=== PATIENT | female | born 1965 | race Caucasian/White ===

== ENCOUNTER 2018-08-06 18:10 | Emergency (ER) | payer SELFPAY ==
[~2018-08-06] VITALS: Ht 157.5 cm; Wt 95.3 kg
[2018-08-06 18:34] VITALS: BP 179/88
[2018-08-06] MEDS ORDERED: PROAIR HFA8.5 GM INH (18:35)
[2018-08-06] MEDS ORDERED: PRED20TA PO (18:35)
[2018-08-06] MEDS ORDERED: AZIT250T PO (18:35)
--- NOTE | 2018-08-06 18:35 | PHYS DOC ---
Adult General Chief Complaint Chief Complaint: Congestion HPI HPI Patient is a 52 year old [f__sex] who presents with [] Review of Systems Review of Systems Constitutional: Denies fever or chills [] Eyes: Denies change in visual acuity, redness, or eye pain [] HENT: Denies nasal congestion or sore throat [] Respiratory: Denies cough or shortness of breath [] Cardiovascular: No additional information not addressed in HPI [] GI: Denies abdominal pain, nausea, vomiting, bloody stools or diarrhea [] : Denies dysuria or hematuria [] Musculoskeletal: Denies back pain or joint pain [] Integument: Denies rash or skin lesions [] Neurologic: Denies headache, focal weakness or sensory changes [] Endocrine: Denies polyuria or polydipsia [] All other systems were reviewed and found to be within normal limits, except as documented in this note. Current Medications Current Medications Current Medications Medications (Trade) Dose Ordered Sig/Matheus Start Time Stop Time Status Last Admin Dose Admin Dexamethasone (Decadron) 10 mg 1X ONCE 08/06/18 18:45 08/06/18 18:46 UNV Physical Exam Physical Exam Constitutional: Well developed, well nourished, no acute distress, non-toxic appearance. [] HENT: Normocephalic, atraumatic, bilateral external ears normal, oropharynx moist, no oral exudates, nose normal. [] Eyes: PERRLA, EOMI, conjunctiva normal, no discharge. [] Neck: Normal range of motion, no tenderness, supple, no stridor. [] Cardiovascular:Heart rate regular rhythm, no murmur [] Lungs & Thorax: Bilateral breath sounds clear to auscultation [] Abdomen: Bowel sounds normal, soft, no tenderness, no masses, no pulsatile masses. [] Skin: Warm, dry, no erythema, no rash. [] Back: No tenderness, no CVA tenderness. [] Extremities: No tenderness, no cyanosis, no clubbing, ROM intact, no edema. [] Neurologic: Alert and oriented X 3, normal motor function, normal sensory function, no focal deficits noted. [] Psychologic: Affect normal, judgement normal, mood normal. [] EKG EKG [] Radiology/Procedures Radiology/Procedures [] Course & Med Decision Making Course & Med Decision Making Pertinent Labs and Imaging studies reviewed. (See chart for details) [] Dragon Disclaimer Dragon Disclaimer This electronic medical record was generated, in whole or in part, using a voice recognition dictation system. Departure Departure Impression: Primary Impression: Acute bronchitis Disposition: 01 HOME, SELF-CARE Condition: STABLE Referrals: NO PCP (PCP) Patient Instructions: Acute Bronchitis, [id number] Additional Instructions: Hold antibiotics for 48 hours. If symptoms worsen or for fever > 100.3 F after 48 hours then start antibiotics as prescribed. Scripts Azithromycin (ZITHROMAX) 250 Mg Tablet 1 PKG PO UD for bronchitis, #6 TAB Take 2 tablets on day 1 and then 1 tablet each day for the next 4 days as directed Prov: SOURAV SANTIAGO DO 08/06/18 Albuterol Sulfate (PROAIR HFA INHALER) 8.5 Gm Hfa.aer.ad 1 PUFF INH PRN Q6HRS PRN for SHORTNESS OF BREATH, #1 INHALER 0 Refills Prov: SOURAV SANTIAGO DO 08/06/18 Prednisone (PREDNISONE) 20 Mg Tablet 2 TAB PO DAILY, #10 TAB Start this prescription 08/07/18 Prov: SOURAV SANTIAGO DO 08/06/18 Problem Qualifiers Primary Impression: Acute bronchitis Bronchitis organism: unspecified organism Qualified Codes: J20.9 - Acute bronchitis, unspecified SOURAV SANTIAGO DO Aug 06, 2018 18:35
[2018-08-06] MEDS ORDERED: DEXAMETHASONE 4 MG TABLET ONE (18:38)
[2018-08-06] MEDS ORDERED: DEXAMETHASONE 4 MG TABLET PO ONE (18:45)
== END 2018-08-06 18:52 | disposition home or self-care (01) ==
LOC: ER 18:10
DX: J20.9 Acute bronchitis, unspecified (principal)
CPT/HCPCS: 99283; J8540

== ENCOUNTER 2018-10-08 09:33 | Emergency (ER) | payer SELFPAY ==
[~2018-10-08] VITALS: Ht 157.5 cm; Wt 108.9 kg
[~2018-10-08 09:33] MED LIST: ALBU2.5V8 INH; AZIT250T PO; CHOL500016 PO; GABA300C18 PO; GLIP10TA13 PO; INSU100I17 SQ; INSU100V13 SQ; LISI-334 PO; METF10007 PO; OXYC5CAP PO; PRED20TA PO
[2018-10-08 09:42] VITALS: BP 193/108
[2018-10-08] MEDS ORDERED: IV NORMAL SALINE 1000ML BAG 1,000 ML IV SCH (10:04)
--- NOTE | 2018-10-08 10:11 | PHYS DOC ---
Past Medical History Past Medical History: Diabetes-Type II, Hypertension Additional Past Medical Histor: Neuropathy Past Surgical History: Cholecystectomy, Smoking: Quit Less Than 1 Year Alcohol Use: None Drug Use: None Adult General Chief Complaint Chief Complaint: HYPERGLYCEMIA HPI HPI Patient is a 53 year old patient with history of diabetes mellitus presented complaining of high blood sugar and not feeling good. Patient states her blood sugars is running as high as 360 and she cannot quadrant her blood sugar to taking insulin and oral medication. Patient also complaining of hurting all over and not feeling good. Patient complaining of urinary frequency without dysuria. Patient states she was admitted in August 2018 with diagnosis of severe sepsis and quit smoking after discharge from hospital but cannot control her blood sugar since her discharge. Patient denies vomiting, diarrhea, chest pain, shortness of breath, fever and chills, focal neuro deficit, headache. Patient states she is hurting all over and rated her pain 8/10 and asking for pain medication. Review of Systems Review of Systems Constitutional: Denies fever or chills [] Eyes: Denies change in visual acuity, redness, or eye pain [] HENT: Denies nasal congestion or sore throat [] Respiratory: Denies cough or shortness of breath [] Cardiovascular: No additional information not addressed in HPI [] GI: Denies abdominal pain, nausea, vomiting, bloody stools or diarrhea [] : Denies dysuria or hematuria [] Musculoskeletal: Denies back pain or joint pain [] Integument: Denies rash or skin lesions [] Neurologic: Denies headache, focal weakness or sensory changes [] Endocrine: Denies polyuria or polydipsia [] All other systems were reviewed and found to be within normal limits, except as documented in this note. Current Medications Current Medications Current Medications Medications (Trade) Dose Ordered Sig/Matheus Start Time Stop Time Status Last Admin Dose Admin Acetaminophen/ Hydrocodone Bitart (Lortab 5/325) 1 tab 1X ONCE 10/08/18 10:15 10/08/18 10:16 DC 10/08/18 10:22 1 TAB Ceftriaxone Sodium (Rocephin) 1 gm 1X ONCE 10/08/18 11:30 10/08/18 11:32 DC 10/08/18 11:43 1 GM Sodium Chloride 1,000 ml @ 1,000 mls/hr Q1H 10/08/18 10:04 10/08/18 11:03 DC 10/08/18 10:21 1,000 MLS/HR Allergies Allergies Allergies Coded Allergies Type Severity Reaction Last Updated Verified Sulfa (Sulfonamide Antibiotics) Allergy Intermediate Rash 08/23/18 Yes Physical Exam Physical Exam Constitutional: Well developed, well nourished,mild acute distress, non-toxic appearance, morbidly obese. [] HENT: Normocephalic, atraumatic, oropharynx dry, no oral exudates, nose normal. [] Eyes: PERRLA, EOMI, conjunctiva normal, no discharge. [] Neck: Normal range of motion, no tenderness, supple, no stridor. [] Cardiovascular:Heart rate regular rhythm, no murmur [] Lungs & Thorax: Bilateral breath sounds clear to auscultation [] Abdomen: Bowel sounds normal, soft, no tenderness, no masses, no pulsatile masses. [] Skin: Warm, dry, no erythema, no rash. [] Back: No tenderness, no CVA tenderness. [] Extremities: No tenderness, no cyanosis, no clubbing, ROM intact, no edema. [] Neurologic: Alert and oriented X 3, normal motor function, normal sensory function, no focal deficits noted. [] Psychologic: Affect anxious, judgement normal, mood normal. [] Current Patient Data Vital Signs Vital Signs Date Time Temp Pulse Resp B/P (MAP) Pulse Ox O2 Delivery O2 Flow Rate FiO2 10/08/18 10:22 15 96 Room Air 10/08/18 09:42 97.8 90 193/108 (136) 97.8 Lab Values Laboratory Tests Test 10/08/18 09:33 10/08/18 09:45 White Blood Count 8.4 x10^3/uL (4.0-11.0) Red Blood Count 4.33 x10^6/uL (3.50-5.40) Hemoglobin 13.1 g/dL (12.0-15.5) Hematocrit 39.9 % (36.0-47.0) Mean Corpuscular Volume 92 fL (79-100) Mean Corpuscular Hemoglobin 30 pg (25-35) Mean Corpuscular Hemoglobin Concent 33 g/dL (31-37) Red Cell Distribution Width 14.9 % (11.5-14.5) H Platelet Count 423 x10^3/uL (140-400) H Neutrophils (%) (Auto) 57 % (31-73) Lymphocytes (%) (Auto) 32 % (24-48) Monocytes (%) (Auto) 7 % (0-9) Eosinophils (%) (Auto) 4 % (0-3) H Basophils (%) (Auto) 1 % (0-3) Neutrophils # (Auto) 4.8 x10^3uL (1.8-7.7) Lymphocytes # (Auto) 2.7 x10^3/uL (1.0-4.8) Monocytes # (Auto) 0.6 x10^3/uL (0.0-1.1) Eosinophils # (Auto) 0.3 x10^3/uL (0.0-0.7) Basophils # (Auto) 0.1 x10^3/uL (0.0-0.2) Urine Opiates Screen Neg (NEG) Urine Methadone Screen Neg (NEG) Urine Barbiturates Neg (NEG) Urine Phencyclidine Screen Neg (NEG) Urine Amphetamine/Methamphetamine Neg (NEG) Urine Benzodiazepines Screen Neg (NEG) Urine Cocaine Screen Neg (NEG) Urine Cannabinoids Screen Neg (NEG) Urine Ethyl Alcohol Neg (NEG) Urine Collection Type Unknown Urine Color Yellow Urine Clarity Clear Urine pH 5.0 Urine Specific [place] 1.025 Urine Protein Negative mg/dL (NEG-TRACE) Urine Glucose (UA) >=1000 mg/dL (NEG) Urine Ketones (Stick) Negative mg/dL (NEG) Urine Blood Negative (NEG) Urine Nitrite Negative (NEG) Urine Bilirubin Negative (NEG) Urine Urobilinogen Dipstick 0.2 mg/dL (0.2 mg/dL) Urine Leukocyte Esterase Large (NEG) Urine RBC Rare /HPF (0-2) Urine WBC 11-20 /HPF (0-4) Urine Squamous Epithelial Cells Many /LPF Urine Bacteria Moderate /HPF (0-FEW) Urine Mucus Slight /LPF Sodium Level 138 mmol/L (136-145) Potassium Level 4.0 mmol/L (3.5-5.1) Chloride Level 104 mmol/L (98-107) Carbon Dioxide Level 25 mmol/L (21-32) Anion Gap 9 (6-14) Blood Urea Nitrogen 18 mg/dL (7-20) Creatinine 0.9 mg/dL (0.6-1.0) Estimated GFR (Cockcroft-Gault) 65.5 BUN/Creatinine Ratio 20 (6-20) Glucose Level 208 mg/dL (70-99) H Lactic Acid Level 2.5 mmol/L (0.4-2.0) H Calcium Level 10.1 mg/dL (8.5-10.1) Total Bilirubin 0.2 mg/dL (0.2-1.0) Aspartate Amino Transferase (AST) 18 U/L (15-37) Alanine Aminotransferase (ALT) 30 U/L (14-59) Alkaline Phosphatase 102 U/L (46-116) Creatine Kinase 36 U/L (26-192) Total Protein 7.1 g/dL (6.4-8.2) Albumin 3.3 g/dL (3.4-5.0) L Albumin/Globulin Ratio 0.9 (1.0-1.7) L Lipase 130 U/L (73-393) Laboratory Tests 10/08/18 09:33 Laboratory Tests 10/08/18 09:45 EKG EKG [] Radiology/Procedures Radiology/Procedures [] Course & Med Decision Making Course & Med Decision Making Pertinent Labs reviewed. (See chart for details) Evaluation of patient in ER showed 53-year-old male patient with history of diabetes mellitus presented to ER with complaining of elevation of blood sugar. Patient had blood sugar of 205 in ER and treated with IV fluid and hydrocodone and felt better. Labs showed elevation of lactic acid of 2.5 without leukocytosis, hypertension, tachycardia or fever. Treated for UTI with Rocephin and plan discharge home with prescription of Keflex. She was advised to follow up with her primary care physician and follow up with diabetic diet. Dragon Disclaimer Dragon Disclaimer This electronic medical record was generated, in whole or in part, using a voice recognition dictation system. Departure Departure Impression: Primary Impression: Uncontrolled diabetes mellitus Additional Impressions: UTI (urinary tract infection) SIRS (systemic inflammatory response syndrome) Morbid obesity Disposition: HOME, SELF-CARE (at 1159) Condition: IMPROVED Referrals: UNKNOWN PCP NAME (PCP) Patient Instructions: 1800 Calorie Diet for Diabetes Meal Planning, Diabetes Meal Planning Guide, Urinary Tract Infection Additional Instructions: Drink plenty of liquids Follow-up with your primary care physician in 3-5 days Return to ER if not getting better Scripts Cephalexin (KEFLEX) 500 Mg Capsule 2 CAP PO Q12HR, #40 CAP Prov: DELILAH RAMIREZ MD 10/08/18 Problem Qualifiers DELILAH RAMIREZ MD Oct 08, 2018 10:11
[2018-10-08] MEDS ORDERED: HYDROcodone/APAP 5/325MG 1 TAB TABLET PO ONE (10:15)
[2018-10-08 10:19] LABS: BASO # 0.1 x10^3/uL (0.0-0.2); BASO % 1 % (0-3); EOS # 0.3 x10^3/uL (0.0-0.7); EOS % 4 % (0-3); HEMATOCRIT 39.9 % (36.0-47.0); HEMOGLOBIN 13.1 g/dL (12.0-15.5); LYMPH # 2.7 x10^3/uL (1.0-4.8); LYMPH % 32 % (24-48); MEAN CORPUSCULAR HEMOGLOBIN 30 pg (25-35); MEAN CORPUSCULAR HGB CONC 33 g/dL (31-37); MEAN CORPUSCULAR VOLUME 92 fL (79-100); MONO # 0.6 x10^3/uL (0.0-1.1); MONO % 7 % (0-9); NEUT # 4.8 x10^3uL (1.8-7.7); NEUT % 57 % (31-73); PLATELET COUNT 423 x10^3/uL (140-400); RED BLOOD COUNT 4.33 x10^6/uL (3.50-5.40); RED CELL DISTRIBUTION WIDTH 14.9 % (11.5-14.5); WHITE BLOOD COUNT 8.4 x10^3/uL (4.0-11.0)
[2018-10-08 10:25] LABS: BILIRUBIN,URINE NEGATIVE (NEG); CLARITY,URINE CLEAR; COLOR,URINE YELLOW; NITRITE,URINE NEGATIVE (NEG); PROTEIN,URINE NEGATIVE (NEG-TRACE); UROBILINOGEN,URINE 0.2 mg/dL (0.2 mg/dL)
[2018-10-08 10:27] LABS: CALCIUM 10.1 mg/dL (8.5-10.1); CREATININE 0.9 mg/dL (0.6-1.0); GFR 65.5
[2018-10-08 10:30] LABS: BARBITURATES NEG (NEG); BENZODIAZEPINES NEG (NEG); CANNABINOIDS NEG (NEG); COCAINE NEG (NEG); METHADONE NEG (NEG); OPIATES NEG (NEG); PHENCYCLIDINE NEG (NEG)
[2018-10-08 10:31] LABS: AMPHETAMINE/METHAMPHETAMINE NEG (NEG)
[2018-10-08 10:41] LABS: ALBUMIN 3.3 g/dL (3.4-5.0); ALBUMIN/GLOBULIN RATIO 0.9 (1.0-1.7); TOTAL BILIRUBIN 0.2 mg/dL (0.2-1.0); TOTAL PROTEIN 7.1 g/dL (6.4-8.2)
[2018-10-08 11:25] LABS: SQUAMOUS EPITHELIAL CELL,UR MANY /LPF
[2018-10-08 11:26] LABS: BACTERIA,URINE MODERATE /HPF (0-FEW); RBC,URINE RARE /HPF (0-2)
[2018-10-08] MEDS ORDERED: cefTRIAXone IV Push 1 GM VIAL. IVP ONE (11:30)
[2018-10-08] MEDS ORDERED: CEPH-264 PO ×2 (12:03→12:08)
== END 2018-10-08 12:35 | disposition home or self-care (01) ==
LOC: ER 09:33
DX: E11.65 Type 2 diabetes mellitus with hyperglycemia (principal); R65.10 Systemic inflammatory response syndrome (SIRS) of non-infectious origin without acute organ dysfunction; E66.01 Morbid (severe) obesity due to excess calories; Z68.41 Body mass index [BMI] 40.0-44.9, adult; I10 Essential (primary) hypertension; E11.40 Type 2 diabetes mellitus with diabetic neuropathy, unspecified; Z90.49 Acquired absence of other specified parts of digestive tract; Z98.890 Other specified postprocedural states; Z87.891 Personal history of nicotine dependence; Z88.2 Allergy status to sulfonamides
CPT/HCPCS: 36415; 80053; 80307; 81001; 82550; 83605; 83690; 85025; 96361; 96374; 99283; J0696; J7030; 87086

== ENCOUNTER 2019-03-15 18:49 | Emergency (ER) | payer OTHER ==
[~2019-03-15] VITALS: Ht 157.5 cm; Wt 108.9 kg
[~2019-03-15 18:49] MED LIST changes: +CEPH-264 PO
[2019-03-15 19:04] VITALS: BP 159/85
[2019-03-15] MEDS ORDERED: DEXAMETHASONE 4 MG TABLET PO STA (19:20)
[2019-03-15] MEDS ORDERED: LIDOCAINE 2% 20 ML VIAL. IJ ONE (19:30)
[2019-03-15] MEDS ORDERED: KETOROLAC 60 MG/2 ML VIAL. IM ONE (19:30)
--- NOTE | 2019-03-15 19:32 | PHYS DOC ---
Past Medical History Past Medical History: Diabetes-Type II, Hypertension Additional Past Medical Histor: Neuropathy (SOURAV HAMPTON APRN) Past Surgical History: Cholecystectomy, (SOURAV HAMPTON APRN) Alcohol Use: None Drug Use: None (SOURAV HAMPTON APRN) Adult General Chief Complaint Chief Complaint: EARACHE/EAR PAIN HPI HPI Patient is a 53 year old female who presented to ER ear pain that started today. The patient's been having upper respiratory symptoms the last week. She started having left ear pain, and left sided facial swelling. Patient is in 10/10 pain, and no interventions prior to arrival. (SOURAV HAMPTON APRN) Review of Systems Review of Systems Constitutional: Denies fever or chills [] Eyes: Denies change in visual acuity, redness, or eye pain [] HENT: Reports nasal congestion or sore throat [] Respiratory: Denies cough or shortness of breath [] Cardiovascular: No additional information not addressed in HPI [] GI: Denies abdominal pain, nausea, vomiting, bloody stools or diarrhea [] : Denies dysuria or hematuria [] Musculoskeletal: Denies back pain or joint pain [] Integument: Denies rash or skin lesions [] Neurologic: Reports headache. Endocrine: Denies polyuria or polydipsia [] Complete systems were reviewed and found to be within normal limits, except as documented in this note. (SOURAV HAMPTON APRN) Current Medications Current Medications Current Medications Medications (Trade) Dose Ordered Sig/Matheus Start Time Stop Time Status Last Admin Dose Admin Dexamethasone (Decadron) 10 mg 1X STAT 03/15/19 19:20 03/15/19 19:24 DC 03/15/19 19:54 10 MG Diphenhydramine HCl (Benadryl) 50 mg 1X ONCE 03/15/19 20:30 03/15/19 20:31 DC 03/15/19 20:50 50 MG Famotidine (Pepcid Vial) 20 mg 1X ONCE 03/15/19 20:30 03/15/19 20:31 DC 03/15/19 20:50 20 MG Info (CONTRAST GIVEN -- Rx MONITORING) 1 each PRN DAILY PRN 03/15/19 21:00 03/17/19 20:59 Iohexol (Omnipaque 300 Mg/ml) 60 ml 1X ONCE 03/15/19 20:45 03/15/19 20:46 DC 03/15/19 21:05 60 ML Ketorolac Tromethamine (Toradol Im) 30 mg 1X ONCE 03/15/19 19:30 03/15/19 19:31 DC 03/15/19 19:54 30 MG Lidocaine HCl 20 ml 1X ONCE 03/15/19 19:30 03/15/19 19:31 DC 03/15/19 19:54 20 ML (SOURAV SANTIAGO DO) Allergies Allergies Allergies Coded Allergies Type Severity Reaction Last Updated Verified Sulfa (Sulfonamide Antibiotics) Allergy Intermediate Rash 08/23/18 Yes (SOURAV SANTIAGO DO) Physical Exam Physical Exam Constitutional: Well developed, well nourished, no acute distress, non-toxic appearance. [] HENT: Normocephalic, atraumatic, bilateral external ears normal, bilateral tympanic membrane are pearly [place], oropharynx moist, no oral exudates, nose normal. [] Eyes: PERRLA, EOMI, conjunctiva normal, no discharge. [] Neck: left sided tenderness, has supraclavicular lymphadenopathy, subparotid lymph node tenderness, ROM intact Cardiovascular:Heart rate regular rhythm, no murmur [] Lungs & Thorax: Bilateral breath sounds clear to auscultation [] Abdomen: Bowel sounds normal, soft, no tenderness, no masses, no pulsatile masses. [] Skin: Warm, dry, no erythema, no rash. [] Back: No tenderness, no CVA tenderness. [] Extremities: No tenderness, no cyanosis, no clubbing, ROM intact, no edema. [] Neurologic: Alert and oriented X 3, normal motor function, normal sensory function, no focal deficits noted. [] Psychologic: Affect normal, judgement normal, mood normal. [] (SOURAV HAMPTON APRN) Current Patient Data Vital Signs Vital Signs Date Time Temp Pulse Resp B/P (MAP) Pulse Ox O2 Delivery O2 Flow Rate FiO2 03/15/19 19:04 98.0 82 18 159/85 (109) 99 Room Air 98.0 (SOURAV SANTIAGO DO) Lab Values Laboratory Tests Test 03/15/19 20:20 White Blood Count 9.2 x10^3/uL (4.0-11.0) Red Blood Count 4.10 x10^6/uL (3.50-5.40) Hemoglobin 12.7 g/dL (12.0-15.5) Hematocrit 37.3 % (36.0-47.0) Mean Corpuscular Volume 91 fL (79-100) Mean Corpuscular Hemoglobin 31 pg (25-35) Mean Corpuscular Hemoglobin Concent 34 g/dL (31-37) Red Cell Distribution Width 14.9 % (11.5-14.5) H Platelet Count 414 x10^3/uL (140-400) H Neutrophils (%) (Auto) 54 % (31-73) Lymphocytes (%) (Auto) 36 % (24-48) Monocytes (%) (Auto) 6 % (0-9) Eosinophils (%) (Auto) 4 % (0-3) H Basophils (%) (Auto) 1 % (0-3) Neutrophils # (Auto) 5.0 x10^3/uL (1.8-7.7) Lymphocytes # (Auto) 3.3 x10^3/uL (1.0-4.8) Monocytes # (Auto) 0.5 x10^3/uL (0.0-1.1) Eosinophils # (Auto) 0.3 x10^3/uL (0.0-0.7) Basophils # (Auto) 0.1 x10^3/uL (0.0-0.2) Sodium Level 138 mmol/L (136-145) Potassium Level 4.5 mmol/L (3.5-5.1) Chloride Level 105 mmol/L (98-107) Carbon Dioxide Level 25 mmol/L (21-32) Anion Gap 8 (6-14) Blood Urea Nitrogen 31 mg/dL (7-20) H Creatinine 1.1 mg/dL (0.6-1.0) H Estimated GFR (Cockcroft-Gault) 52.0 BUN/Creatinine Ratio 28 (6-20) H Glucose Level 175 mg/dL (70-99) H Calcium Level 10.3 mg/dL (8.5-10.1) H Total Bilirubin 0.2 mg/dL (0.2-1.0) Aspartate Amino Transferase (AST) 19 U/L (15-37) Alanine Aminotransferase (ALT) 35 U/L (14-59) Alkaline Phosphatase 129 U/L (46-116) H Total Protein 7.6 g/dL (6.4-8.2) Albumin 3.6 g/dL (3.4-5.0) Albumin/Globulin Ratio 0.9 (1.0-1.7) L Laboratory Tests 03/15/19 20:20 Laboratory Tests 03/15/19 20:20 (SOURAV SANTIAGO DO) EKG EKG [] (SOURAV HAMPTON APRN) Radiology/Procedures Radiology/Procedures Placed 3 mL of 2% of lidocaine in the Left nare with swab. Patient headache went from 02/11 to 09/13. (SOURAV HAMPTON APRN) Course & Med Decision Making Course & Med Decision Making Pertinent Labs and Imaging studies reviewed. (See chart for details) Will give nasal lidocaine to help headache, Decadron, Toradol, labs, and get CT of the soft tissue of the neck. Turned care over to Dr. Santiago at 20:26. (SOURAV HAMPTON APRN) Dragon Disclaimer Dragon Disclaimer This electronic medical record was generated, in whole or in part, using a voice recognition dictation system. (SOURAV HAMPTON APRN) Departure Departure Impression: Primary Impression: Headache Additional Impression: Neck fullness Disposition: 01 HOME, SELF-CARE Condition: STABLE Referrals: UNKNOWN PCP NAME (PCP) Patient Instructions: Headache, FAQs Scripts Butalb/Acetaminophen/Caffeine ([id number] 50-325-40) 1 Each Tablet 1 EACH PO Q6HRS PRN for HEADACHE, #14 TAB Prov: SOURAV SANITAGO DO 03/15/19 Prednisone (PREDNISONE) 20 Mg Tablet 2 TAB PO DAILY, #8 TAB Start this prescription tomrrow, 03/16/19 Prov: SOURAV SANTIAGO DO 03/15/19 Problem Qualifiers Primary Impression: Headache Headache type: unspecified Headache chronicity pattern: acute headache Intractability: not intractable Qualified Codes: R51 - Headache SOURAV HAMPTON APRN Mar 15, 2019 19:32 SOURAV SANTIAGO DO Mar 15, 2019 21:30
[2019-03-15 20:25] LABS: BASO # 0.1 x10^3/uL (0.0-0.2); BASO % 1 % (0-3); EOS # 0.3 x10^3/uL (0.0-0.7); EOS % 4 % (0-3); HEMATOCRIT 37.3 % (36.0-47.0); HEMOGLOBIN 12.7 g/dL (12.0-15.5); LYMPH # 3.3 x10^3/uL (1.0-4.8); LYMPH % 36 % (24-48); MEAN CORPUSCULAR HEMOGLOBIN 31 pg (25-35); MEAN CORPUSCULAR HGB CONC 34 g/dL (31-37); MEAN CORPUSCULAR VOLUME 91 fL (79-100); MONO # 0.5 x10^3/uL (0.0-1.1); MONO % 6 % (0-9); NEUT % 54 % (31-73); PLATELET COUNT 414 x10^3/uL (140-400); RED CELL DISTRIBUTION WIDTH 14.9 % (11.5-14.5); WHITE BLOOD COUNT 9.2 x10^3/uL (4.0-11.0)
[2019-03-15] MEDS ORDERED: diphenhydrAMINE 50 MG/ML VIAL IVP ONE (20:30)
[2019-03-15] MEDS ORDERED: FAMOTIDINE 20 MG/2 ML VIAL IVP ONE (20:30)
[2019-03-15 20:38] LABS: CALCIUM 10.3 mg/dL (8.5-10.1); CREATININE 1.1 mg/dL (0.6-1.0); POTASSIUM 4.5 mmol/L (3.5-5.1)
[2019-03-15 20:44] LABS: ALBUMIN 3.6 g/dL (3.4-5.0); ALBUMIN/GLOBULIN RATIO 0.9 (1.0-1.7); TOTAL BILIRUBIN 0.2 mg/dL (0.2-1.0); TOTAL PROTEIN 7.6 g/dL (6.4-8.2)
[2019-03-15] MEDS ORDERED: IOHEXOL 300 MG/ML 100ML VIAL. IV ONE (20:45)
[2019-03-15] MEDS ORDERED: CONTRAST GIVEN. MC PRN (21:00)
--- NOTE | 2019-03-15 21:22 | RAD ---
CT neck with contrast. HISTORY: Left-sided facial pain, edema CT scan of the neck was done using 60 mL on Omnipaque 300 contrast. Lung bases are clear. Liver is normal in size. Parotid and submandibular glands are unremarkable. There is no adenopathy in the neck. Submandibular glands are upper normal but within normal limits in size. Sinuses are clear throughout. Orbits are unremarkable. Facial edema or abscess is not identified. A dental abscess is not identified. Visualized portions of the brain are normal. Ventricles are normal in size. There is degenerative disc disease in the cervical spine with disc space narrowing at C4-5 and C5-C6. There is foraminal narrowing at C5-6 on the left. IMPRESSION: 1. Sinuses are clear. 2. A mass or adenopathy is not identified. 3. Degenerative changes in the cervical spine. PQRS Compliance Statement: One or more of the following individualized dose reduction techniques were utilized for this examination: 1. Automated exposure control 2. Adjustment of the mA and/or kV according to patient size 3. Use of iterative reconstruction technique Electronically signed by: Ashok Ulloa MD (03/15/2019 9:19 PM) [facility]
[2019-03-15] MEDS ORDERED: BUTA1TAB23 PO (21:30)
[2019-03-15] MEDS ORDERED: PRED20TA PO (21:30)
== END 2019-03-15 21:45 | disposition home or self-care (01) ==
LOC: ER 18:49
DX: R51 Headache (principal); R59.1 Generalized enlarged lymph nodes; H92.02 Otalgia, left ear; E11.40 Type 2 diabetes mellitus with diabetic neuropathy, unspecified; I10 Essential (primary) hypertension; Z88.2 Allergy status to sulfonamides
CPT/HCPCS: 36415; 70491; 80053; 85025; 96372; 96374; 96375; 99285; J1200; J1885; J2001; J3490; J8540; Q9967

== ENCOUNTER 2019-05-08 00:06 | Emergency (ER) | payer OTHER ==
[~2019-05-08] VITALS: Ht 157.5 cm; Wt 111.1 kg
[~2019-05-08 00:06] MED LIST changes: +BUTA1TAB23 PO
[2019-05-08] MEDS ORDERED: ONDANSETRON PF 4 MG/2 ML VIAL. IV ONE (01:00)
[2019-05-08 01:10] LABS: BASO # 0.2 x10^3/uL (0.0-0.2); BASO % 1 % (0-3); EOS # 0.9 x10^3/uL (0.0-0.7); EOS % 6 % (0-3); HEMATOCRIT 38.7 % (36.0-47.0); HEMOGLOBIN 13.1 g/dL (12.0-15.5); LYMPH # 3.3 x10^3/uL (1.0-4.8); LYMPH % 24 % (24-48); MEAN CORPUSCULAR HEMOGLOBIN 31 pg (25-35); MEAN CORPUSCULAR HGB CONC 34 g/dL (31-37); MEAN CORPUSCULAR VOLUME 91 fL (79-100); MONO # 0.9 x10^3/uL (0.0-1.1); MONO % 7 % (0-9); NEUT # 8.6 x10^3/uL (1.8-7.7); NEUT % 62 % (31-73); PLATELET COUNT 448 x10^3/uL (140-400); RED BLOOD COUNT 4.24 x10^6/uL (3.50-5.40); RED CELL DISTRIBUTION WIDTH 14.1 % (11.5-14.5); WHITE BLOOD COUNT 13.9 x10^3/uL (4.0-11.0)
[2019-05-08 01:20] LABS: CREATININE 1.3 mg/dL (0.6-1.0); GFR 42.8; POTASSIUM 3.8 mmol/L (3.5-5.1)
[2019-05-08 01:26] LABS: ALBUMIN 3.6 g/dL (3.4-5.0); ALBUMIN/GLOBULIN RATIO 0.9 (1.0-1.7); TOTAL BILIRUBIN 0.2 mg/dL (0.2-1.0); TOTAL PROTEIN 7.5 g/dL (6.4-8.2)
[2019-05-08 01:45] VITALS: BP 140/79
--- NOTE | 2019-05-08 01:45 | PHYS DOC ---
Past Medical History Past Medical History: Diabetes-Type II, Hypertension Additional Past Medical Histor: Neuropathy Past Surgical History: Cholecystectomy, Alcohol Use: None Drug Use: None Adult General Chief Complaint Chief Complaint: HYPOGLYCEMIA HPI HPI Patient is a 53 year old female history of diabetes mellitus who presents via EMS with complaining of low blood sugar. Patient states her primary care physician managing her blood sugar and changing her oral blood sugar medication and increasing the dose of insulin for the last several weeks and her blood sugars fluctuating as high and low. Patient states she felt dizzy and lightheadedness like her blood sugar and called 911. EMS reported that patient had blood sugar of 51 and treated with increase of blood sugar to 78 at arrival to ER. Patient is alert and oriented and denies pain. Review of Systems Review of Systems Constitutional: Denies fever or chills [] Eyes: Denies change in visual acuity, redness, or eye pain [] HENT: Denies nasal congestion or sore throat [] Respiratory: Denies cough or shortness of breath [] Cardiovascular: No additional information not addressed in HPI [] GI: Denies abdominal pain, nausea, vomiting, bloody stools or diarrhea [] : Denies dysuria or hematuria [] Musculoskeletal: Denies back pain or joint pain [] Integument: Denies rash or skin lesions [] Neurologic: Denies headache, focal weakness or sensory changes [] Endocrine: Denies polyuria or polydipsia [] All other systems were reviewed and found to be within normal limits, except as documented in this note. Current Medications Current Medications Current Medications Medications (Trade) Dose Ordered Sig/Matheus Start Time Stop Time Status Last Admin Dose Admin Ondansetron HCl (Zofran) 4 mg 1X ONCE 05/08/19 01:00 05/08/19 01:01 DC 05/08/19 00:51 4 MG Allergies Allergies Allergies Coded Allergies Type Severity Reaction Last Updated Verified Sulfa (Sulfonamide Antibiotics) Allergy Intermediate Rash 08/23/18 Yes Physical Exam Physical Exam Constitutional: Well developed, well nourished, no distress, non-toxic appearance, morbidly obese. [] HENT: Normocephalic, atraumatic. Eyes: PERRLA, EOMI, conjunctiva normal, no discharge. [] Neck: Normal range of motion, no tenderness, supple, no stridor. [] Cardiovascular:Heart rate regular rhythm, no murmur [] Lungs & Thorax: Bilateral breath sounds clear to auscultation [] Abdomen: Bowel sounds normal, soft, no tenderness, no masses, no pulsatile masses. [] Skin: Warm, dry, no erythema, no rash. [] Back: No tenderness, no CVA tenderness. [] Extremities: No tenderness, no cyanosis, no clubbing, ROM intact, no edema. [] Neurologic: Alert and oriented X 3, no focal deficits noted. [] Psychologic: Affect normal, judgement normal, mood normal. [] Current Patient Data Vital Signs Vital Signs Date Time Temp Pulse Resp B/P (MAP) Pulse Ox O2 Delivery O2 Flow Rate FiO2 05/08/19 01:45 96 13 140/79 (99) 97 Room Air 05/08/19 00:10 97.9 97.9 Lab Values Laboratory Tests Test 05/08/19 00:11 05/08/19 01:00 05/08/19 01:40 Glucose (Fingerstick) 78 mg/dL (70-99) White Blood Count 13.9 x10^3/uL (4.0-11.0) H Red Blood Count 4.24 x10^6/uL (3.50-5.40) Hemoglobin 13.1 g/dL (12.0-15.5) Hematocrit 38.7 % (36.0-47.0) Mean Corpuscular Volume 91 fL (79-100) Mean Corpuscular Hemoglobin 31 pg (25-35) Mean Corpuscular Hemoglobin Concent 34 g/dL (31-37) Red Cell Distribution Width 14.1 % (11.5-14.5) Platelet Count 448 x10^3/uL (140-400) H Neutrophils (%) (Auto) 62 % (31-73) Lymphocytes (%) (Auto) 24 % (24-48) Monocytes (%) (Auto) 7 % (0-9) Eosinophils (%) (Auto) 6 % (0-3) H Basophils (%) (Auto) 1 % (0-3) Neutrophils # (Auto) 8.6 x10^3/uL (1.8-7.7) H Lymphocytes # (Auto) 3.3 x10^3/uL (1.0-4.8) Monocytes # (Auto) 0.9 x10^3/uL (0.0-1.1) Eosinophils # (Auto) 0.9 x10^3/uL (0.0-0.7) H Basophils # (Auto) 0.2 x10^3/uL (0.0-0.2) Sodium Level 144 mmol/L (136-145) Potassium Level 3.8 mmol/L (3.5-5.1) Chloride Level 105 mmol/L (98-107) Carbon Dioxide Level 28 mmol/L (21-32) Anion Gap 11 (6-14) Blood Urea Nitrogen 23 mg/dL (7-20) H Creatinine 1.3 mg/dL (0.6-1.0) H Estimated GFR (Cockcroft-Gault) 42.8 BUN/Creatinine Ratio 18 (6-20) Glucose Level 82 mg/dL (70-99) Calcium Level 10.0 mg/dL (8.5-10.1) Total Bilirubin 0.2 mg/dL (0.2-1.0) Aspartate Amino Transferase (AST) 16 U/L (15-37) Alanine Aminotransferase (ALT) 30 U/L (14-59) Alkaline Phosphatase 107 U/L (46-116) Troponin I Quantitative < 0.017 ng/mL (0.000-0.055) Total Protein 7.5 g/dL (6.4-8.2) Albumin 3.6 g/dL (3.4-5.0) Albumin/Globulin Ratio 0.9 (1.0-1.7) L Lipase 198 U/L (73-393) Urine Collection Type Unknown Urine Color Yellow Urine Clarity Clear Urine pH 5.0 Urine Specific [place] 1.015 Urine Protein Negative mg/dL (NEG-TRACE) Urine Glucose (UA) Negative mg/dL (NEG) Urine Ketones (Stick) Negative mg/dL (NEG) Urine Blood Negative (NEG) Urine Nitrite Negative (NEG) Urine Bilirubin Negative (NEG) Urine Urobilinogen Dipstick 0.2 mg/dL (0.2 mg/dL) Urine Leukocyte Esterase Negative (NEG) Urine RBC Occ /HPF (0-2) Urine WBC 1-4 /HPF (0-4) Urine Squamous Epithelial Cells Few /LPF Urine Bacteria 0 /HPF (0-FEW) Urine Hyaline Casts Few /HPF Urine Mucus Mod /LPF Laboratory Tests 05/08/19 01:00 Laboratory Tests 05/08/19 01:00 EKG EKG [] Radiology/Procedures Radiology/Procedures [] Course & Med Decision Making Course & Med Decision Making Pertinent Labs reviewed. (See chart for details) Evaluation of patient in ER showed 52-year-old female patient brought in by EMS because of low blood sugar at 51 that increased to 78 at arrival to ER. Patient was alert and oriented without acute distress and tolerated oral intake. Labs w as unremarkable except for mild renal insufficiency and leukocytosis. Patient was advised to continue current medication and follow up with primary care physician for outpatient diabetes mellitus management. Dragon Disclaimer Dragon Disclaimer This electronic medical record was generated, in whole or in part, using a voice recognition dictation system. Departure Departure Impression: Primary Impression: Hypoglycemia Additional Impressions: Uncontrolled diabetes mellitus Renal insufficiency Disposition: HOME, SELF-CARE (At 0208) Condition: IMPROVED Referrals: NO PCP (PCP) Patient Instructions: 1800 Calorie Diet for Diabetes Meal Planning, Diabetes Meal Planning Guide, Diabetes and Exercise-SportsMed, Hypoglycemia (Low Blood Sugar) Additional Instructions: Drink plenty of liquids Follow-up with your primary care physician in 2-3 days Return to ER if not getting better Continue home medication Problem Qualifiers Additional Impressions: Uncontrolled diabetes mellitus Diabetes mellitus type: type 2 Glycemic state: with hypoglycemia Coma presence: without coma Qualified Codes: E11.649 - Type 2 diabetes mellitus with hypoglycemia without coma DELILAH RAMIREZ MD May 08, 2019 01:45
[2019-05-08 01:53] LABS: BILIRUBIN,URINE NEGATIVE (NEG); CLARITY,URINE CLEAR; COLOR,URINE YELLOW; NITRITE,URINE NEGATIVE (NEG); PROTEIN,URINE NEGATIVE (NEG-TRACE); UROBILINOGEN,URINE 0.2 mg/dL (0.2 mg/dL)
[2019-05-08 02:00] LABS: BACTERIA,URINE 0 /HPF (0-FEW); RBC,URINE OCC /HPF (0-2)
[2019-05-08 02:01] LABS: HYALINE CASTS, URINE FEW /HPF; SQUAMOUS EPITHELIAL CELL,UR FEW /LPF
== END 2019-05-08 02:20 | disposition home or self-care (01) ==
LOC: ER 00:06
DX: E11.649 Type 2 diabetes mellitus with hypoglycemia without coma (principal); E11.40 Type 2 diabetes mellitus with diabetic neuropathy, unspecified; N28.9 Disorder of kidney and ureter, unspecified; E66.01 Morbid (severe) obesity due to excess calories; Z68.41 Body mass index [BMI] 40.0-44.9, adult; I10 Essential (primary) hypertension; Z90.49 Acquired absence of other specified parts of digestive tract; Z98.890 Other specified postprocedural states; Z88.2 Allergy status to sulfonamides
CPT/HCPCS: 36415; 80053; 81001; 82962; 83690; 84484; 85025; 96374; 99284; J2405

== ENCOUNTER 2019-05-22 18:34 | Emergency (ER) | payer OTHER ==
[~2019-05-22] VITALS: Ht 157.5 cm; Wt 111.1 kg
[2019-05-22 18:40] VITALS: BP 162/71
[2019-05-22] MEDS ORDERED: IPRATRPIUM/ALBUTEROL 0.5/2.5MG 3 ML NEBU. NEB ONE (19:00)
[2019-05-22] MEDS ORDERED: BENZONATATE 100 MG CAPSULE. PO ONE (19:00)
[2019-05-22] MEDS ORDERED: methylPREDNISolone SOD SUCC PF 125 MG/2 ML VIAL. IM ONE (19:00)
[2019-05-22 19:39] LABS: INFLUENZA A PATIENT NEGATIVE (NEGATIVE); INFLUENZA B PATIENT NEGATIVE (NEGATIVE)
--- NOTE | 2019-05-22 19:42 | PHYS DOC ---
Past Medical History Past Medical History: Diabetes-Type II, Hypertension Additional Past Medical Histor: Neuropathy (SKINNY BURTON) Past Surgical History: Cholecystectomy, (SKINNY BURTNO) Alcohol Use: None Drug Use: None (SKINNY BURTON) Adult General Chief Complaint Chief Complaint: COUGH HPI HPI Patient is a 53 year old female presents to the ED complaining of cough �4 days. Patient reports that she recently quit smoking. States she is using nicotine patches. Associated symptoms congestion, sore throat and subjective fevers. No sick contacts. Denies chest pain, shortness of breath, abdominal pain, nausea/vomiting, lower leg swelling, dizziness (SKINNY BURTON) Review of Systems Review of Systems Constitutional: Complains of subjective fever. Denies chills [] Eyes: Denies change in visual acuity, redness, or eye pain [] HENT: Complains of congestion and sore throat. [] Respiratory: Complains of cough. Denies shortness of breath [] Cardiovascular: No additional information not addressed in HPI [] GI: Denies abdominal pain, nausea, vomiting, bloody stools or diarrhea [] : Denies dysuria or hematuria [] Musculoskeletal: Denies back pain or joint pain [] Integument: Denies rash or skin lesions [] Neurologic: Denies headache, focal weakness or sensory changes [] All other systems were reviewed and found to be within normal limits, except as documented in this note. (SKINNY BURTON) Current Medications Current Medications Current Medications Medications (Trade) Dose Ordered Sig/Matheus Start Time Stop Time Status Last Admin Dose Admin Albuterol/ Ipratropium (Duoneb) 3 ml 1X ONCE 05/22/19 19:00 05/22/19 19:01 DC 05/22/19 19:22 3 ML Benzonatate (Tessalon Perle) 100 mg 1X ONCE 05/22/19 19:00 05/22/19 19:01 DC 05/22/19 19:42 100 MG Methylprednisolone Sodium Succinate (SOLU-Medrol 125MG VIAL) 125 mg 1X ONCE 05/22/19 19:00 05/22/19 19:01 DC 05/22/19 19:42 125 MG (SOURAV SANTIAGO DO) Allergies Allergies Allergies Coded Allergies Type Severity Reaction Last Updated Verified Sulfa (Sulfonamide Antibiotics) Allergy Intermediate Rash 08/23/18 Yes (SOURAV SANTIAGO DO) Physical Exam Physical Exam Constitutional: Well developed, well nourished, no acute distress, non-toxic appearance. [] HENT: Normocephalic, atraumatic, bilateral external ears normal, Mild pharyngeal erythema. oropharynx moist, no oral exudates, nose normal. [] Eyes: PERRLA, EOMI, conjunctiva normal, no discharge. [] Neck: Normal range of motion, no tenderness, supple, no stridor. [] Cardiovascular:Heart rate regular rhythm, no murmur [] Lungs & Thorax: Bilateral breath sounds clear to auscultation. Dry cough. [] Abdomen: Bowel sounds normal, soft, no tenderness, no masses, no pulsatile masses. [] Skin: Warm, dry, no erythema, no rash. [] Back: No tenderness, no CVA tenderness. [] Extremities: No tenderness, no cyanosis, no clubbing, ROM intact, no edema. [] Neurologic: Alert and oriented X 3, normal motor function, normal sensory function, no focal deficits noted. [] Psychologic: Affect normal, judgement normal, mood normal. [] (SKINNY BURTON) Current Patient Data Vital Signs Vital Signs Date Time Temp Pulse Resp B/P (MAP) Pulse Ox O2 Delivery O2 Flow Rate FiO2 05/22/19 19:24 98 Room Air 05/22/19 18:40 98.3 95 20 162/71 (101) 98.3 (SOURAV SANTIAGO DO) Lab Values Laboratory Tests Test 05/22/19 18:55 Influenza Type A Antigen Negative (NEGATIVE) Influenza Type B Antigen Negative (NEGATIVE) (SOURAV SANTIAGO DO) Lab Values Laboratory Tests Test 05/22/19 18:55 Influenza Type A Antigen Negative (NEGATIVE) Influenza Type B Antigen Negative (NEGATIVE) (SKINNY BURTON) EKG EKG [] (SKINNY BURTON) Radiology/Procedures Radiology/Procedures [] (SKINNY BURTON) Radiology/Procedures AP CXR (preliminary interpretation by ED physician): Left basilar atelectasis vs early infiltrate (SOURAV SANTIAGO DO) Course & Med Decision Making Course & Med Decision Making Pertinent Labs and Imaging studies reviewed. (See chart for details) []Discussed lab and imaging findings with patient. Patient improved after breathing treatment in ED. Patient is not tachypneic or tachycardic. We'll treat with Pro air inhaler, nebulizer treatments and azithromycin outpatient. Discussed symptomatic treatment and follow up with PCP this week. Provided contact information/education. Discussed reasons to return to the ED. Patient understands and agrees with plan. (SKINNY BURTON) Dragon Disclaimer Dragon Disclaimer This electronic medical record was generated, in whole or in part, using a voice recognition dictation system. (SKINNY BURTON) Departure Departure Impression: Primary Impression: Pneumonia Disposition: HOME, SELF-CARE Condition: IMPROVED Referrals: NO PCP (PCP) SOURAV ACEVEDO MD Patient Instructions: Pneumonia, Adult Scripts Albuterol Sulfate (ALBUTEROL SULFATE CONC NEB SOLN) 2.5 Mg/0.5 Ml Vial.neb 1 VIAL NEB Q4HRS, #60 VIAL 1 Refill Prov: SKINNY BURTON 05/22/19 Benzonatate (TESSALON PERLE) 100 Mg Capsule 1 CAP PO TID, #21 CAP Prov: SKINNY BURTON 05/22/19 Albuterol Sulfate (Proair Hfa) 8.5 Gm Hfa.aer.ad 1 PUFF INH PRN Q6HRS PRN for SHORTNESS OF BREATH, #1 INHALER Prov: SKINNY BURTON 05/22/19 Azithromycin (AZITHROMYCIN TABLET) 250 Mg Tablet 1 PKG PO UD, #6 TAB Prov: SKINNY BURTON 05/22/19 Attending Signature Attending Signature I have reviewed the PA/WAITER's note and plan of care. I was available for consultation as needed during the patient's visit in the emergency department. I agree with the clinical impression, plan, and disposition. (SOURAV SANTIAGO DO) SKINNY BURTON May 22, 2019 19:42 SOURAV SANTIAGO DO May 23, 2019 01:29
[2019-05-22] MEDS ORDERED: ALBU2.5V8 INH (20:11)
[2019-05-22] MEDS ORDERED: BENZ100C PO (20:11)
[2019-05-22] MEDS ORDERED: PRED50TA PO (20:11)
[2019-05-22] MEDS ORDERED: AZIT250T6 PO (20:11)
[2019-05-22] MEDS ORDERED: ALBU2.5V14 NEB (20:20)
--- NOTE | 2019-05-23 07:57 | RAD ---
EXAM: AP View of the chest DATE: 05/22/2019 6:57 PM INDICATION: Cough COMPARISON: 08/20/2018, FINDINGS: The heart is not enlarged. Mediastinal and hilar contours are normal. Emphysematous changes are seen. Minimal patchy opacities right midlung are new compared 08/20/2018 atypical in location/distribution for atelectasis may represent an early/developing consolidation. No pleural effusion or pneumothorax. IMPRESSION: Minimal patchy opacities right midlung favor early/developing consolidation. Imaging follow-up to resolution is recommended. Electronically signed by: Cristian Barboza MD (05/23/2019 7:54 AM) [facility]
== END 2019-05-22 20:20 | disposition home or self-care (01) ==
LOC: ER 18:34
DX: J18.9 Pneumonia, unspecified organism (principal); E11.40 Type 2 diabetes mellitus with diabetic neuropathy, unspecified; I10 Essential (primary) hypertension; Z90.49 Acquired absence of other specified parts of digestive tract; Z98.890 Other specified postprocedural states; Z87.891 Personal history of nicotine dependence; Z88.2 Allergy status to sulfonamides
CPT/HCPCS: 71045; 87070; 87804; 87880; 94640; 96372; 99285; J2930; J7620

== ENCOUNTER 2019-06-11 20:01 | Emergency (ER) | payer OTHER ==
[~2019-06-11] VITALS: Ht 157.5 cm; Wt 111.1 kg
[~2019-06-11 20:01] MED LIST changes: +ALBU2.5V14 NEB; +AZIT250T6 PO; +BENZ100C PO; +PRED50TA PO
[2019-06-11 20:16] VITALS: BP 179/86
[2019-06-11 20:30] LABS: BASO # 0.1 x10^3/uL (0.0-0.2); BASO % 1 % (0-3); EOS # 0.5 x10^3/uL (0.0-0.7); EOS % 4 % (0-3); HEMATOCRIT 37.6 % (36.0-47.0); HEMOGLOBIN 12.9 g/dL (12.0-15.5); LYMPH # 3.9 x10^3/uL (1.0-4.8); LYMPH % 34 % (24-48); MEAN CORPUSCULAR HEMOGLOBIN 31 pg (25-35); MEAN CORPUSCULAR HGB CONC 34 g/dL (31-37); MEAN CORPUSCULAR VOLUME 90 fL (79-100); MONO # 0.7 x10^3/uL (0.0-1.1); MONO % 6 % (0-9); NEUT # 6.4 x10^3/uL (1.8-7.7); NEUT % 55 % (31-73); PLATELET COUNT 431 x10^3/uL (140-400); RED BLOOD COUNT 4.18 x10^6/uL (3.50-5.40); RED CELL DISTRIBUTION WIDTH 14.2 % (11.5-14.5); WHITE BLOOD COUNT 11.6 x10^3/uL (4.0-11.0)
[2019-06-11] MEDS ORDERED: IV NORMAL SALINE 1000ML BAG 1,000 ML IV ONE (20:30)
[2019-06-11 20:39] LABS: CALCIUM 9.9 mg/dL (8.5-10.1); CREATININE 1.2 mg/dL (0.6-1.0); POTASSIUM 3.7 mmol/L (3.5-5.1)
[2019-06-11 20:45] LABS: ALBUMIN 3.6 g/dL (3.4-5.0); ALBUMIN/GLOBULIN RATIO 0.9 (1.0-1.7); MAGNESIUM 1.2 mg/dL (1.8-2.4); TOTAL BILIRUBIN 0.2 mg/dL (0.2-1.0); TOTAL PROTEIN 7.4 g/dL (6.4-8.2)
[2019-06-11] MEDS ORDERED: MAGNESIUM SULFATE 2GM 50 ML IV ONE (21:45)
--- NOTE | 2019-06-11 21:47 | PHYS DOC ---
Past Medical History Past Medical History: Diabetes-Type II, Hypertension Additional Past Medical Histor: Neuropathy Past Surgical History: Cholecystectomy, Alcohol Use: None Drug Use: None Adult General Chief Complaint Chief Complaint: MUSCLE SPASM/CRAMP HPI HPI Patient is a 53-year-old female with a history of diabetes who presents with what she describes as some muscle spasm. She states it started her lower extremities is now up in her upper extremities. She's recently had an elevated potassium level that was treated as an inpatient. She states she is very anxious today. She did just recently stop her lisinopril and started on hydrochlorothiazide. She denies any chest pain or shortness of breath. She states her blood pressure has been well controlled at home. She states that she is having a lot of anxiety.[] Review of Systems Review of Systems Constitutional: Denies fever or chills [] Eyes: Denies change in visual acuity, redness, or eye pain [] HENT: Denies nasal congestion or sore throat [] Respiratory: Denies cough or shortness of breath [] Cardiovascular: No additional information not addressed in HPI [] GI: Denies abdominal pain, nausea, vomiting, bloody stools or diarrhea [] : Denies dysuria or hematuria [] Musculoskeletal: Described in history of present illness[] Integument: Denies rash or skin lesions [] Neurologic: Denies headache, focal weakness or sensory changes [] Endocrine: Denies polyuria or polydipsia [] All other systems were reviewed and found to be within normal limits, except as documented in this note. Current Medications Current Medications Current Medications Medications (Trade) Dose Ordered Sig/Matheus Start Time Stop Time Status Last Admin Dose Admin Sodium Chloride 1,000 ml @ 1,000 mls/hr 1X ONCE 06/11/19 20:30 06/11/19 21:29 DC 06/11/19 21:01 1,000 MLS/HR Allergies Allergies Allergies Coded Allergies Type Severity Reaction Last Updated Verified Sulfa (Sulfonamide Antibiotics) Allergy Intermediate Rash 08/23/18 Yes Physical Exam Physical Exam Constitutional: Well developed, well nourished, no acute distress, non-toxic appearance. [] HENT: Normocephalic, atraumatic, bilateral external ears normal, oropharynx moist, no oral exudates, nose normal. [] Eyes: PERRLA, EOMI, conjunctiva normal, no discharge. [] Neck: Normal range of motion, no tenderness, supple, no stridor. [] Cardiovascular:Heart rate regular rhythm, no murmur [] Lungs & Thorax: Bilateral breath sounds clear to auscultation [] Abdomen: Bowel sounds normal, soft, no tenderness, no masses, no pulsatile masses. [] Skin: Warm, dry, no erythema, no rash. [] Back: No tenderness, no CVA tenderness. [] Extremities: No tenderness, no cyanosis, no clubbing, ROM intact, no edema. [] Neurologic: Alert and oriented X 3, normal motor function, normal sensory function, no focal deficits noted. [] Psychologic: Extremely anxious[] Current Patient Data Vital Signs Vital Signs Date Time Temp Pulse Resp B/P (MAP) Pulse Ox O2 Delivery O2 Flow Rate FiO2 06/11/19 20:16 97.9 102 18 179/86 (117) 98 Room Air 97.9 Lab Values Laboratory Tests Test 06/11/19 20:25 White Blood Count 11.6 x10^3/uL (4.0-11.0) H Red Blood Count 4.18 x10^6/uL (3.50-5.40) Hemoglobin 12.9 g/dL (12.0-15.5) Hematocrit 37.6 % (36.0-47.0) Mean Corpuscular Volume 90 fL (79-100) Mean Corpuscular Hemoglobin 31 pg (25-35) Mean Corpuscular Hemoglobin Concent 34 g/dL (31-37) Red Cell Distribution Width 14.2 % (11.5-14.5) Platelet Count 431 x10^3/uL (140-400) H Neutrophils (%) (Auto) 55 % (31-73) Lymphocytes (%) (Auto) 34 % (24-48) Monocytes (%) (Auto) 6 % (0-9) Eosinophils (%) (Auto) 4 % (0-3) H Basophils (%) (Auto) 1 % (0-3) Neutrophils # (Auto) 6.4 x10^3/uL (1.8-7.7) Lymphocytes # (Auto) 3.9 x10^3/uL (1.0-4.8) Monocytes # (Auto) 0.7 x10^3/uL (0.0-1.1) Eosinophils # (Auto) 0.5 x10^3/uL (0.0-0.7) Basophils # (Auto) 0.1 x10^3/uL (0.0-0.2) Sodium Level 141 mmol/L (136-145) Potassium Level 3.7 mmol/L (3.5-5.1) Chloride Level 101 mmol/L (98-107) Carbon Dioxide Level 29 mmol/L (21-32) Anion Gap 11 (6-14) Blood Urea Nitrogen 27 mg/dL (7-20) H Creatinine 1.2 mg/dL (0.6-1.0) H Estimated GFR (Cockcroft-Gault) 47.0 BUN/Creatinine Ratio 23 (6-20) H Glucose Level 214 mg/dL (70-99) H Calcium Level 9.9 mg/dL (8.5-10.1) Magnesium Level 1.2 mg/dL (1.8-2.4) L Total Bilirubin 0.2 mg/dL (0.2-1.0) Aspartate Amino Transferase (AST) 23 U/L (15-37) Alanine Aminotransferase (ALT) 32 U/L (14-59) Alkaline Phosphatase 129 U/L (46-116) H Total Protein 7.4 g/dL (6.4-8.2) Albumin 3.6 g/dL (3.4-5.0) Albumin/Globulin Ratio 0.9 (1.0-1.7) L Thyroid Stimulating Hormone (TSH) 3.499 uIU/mL (0.358-3.74) Laboratory Tests 06/11/19 20:25 Laboratory Tests 06/11/19 20:25 EKG EKG [] Radiology/Procedures Radiology/Procedures [] Course & Med Decision Making Course & Med Decision Making Pertinent Labs and Imaging studies reviewed. (See chart for details) [ED course: Evaluation reveals a 53-year-old very anxious female. Her workup did show that her magnesium was low so she was given 2 g of mag IV. We'll send her home after she receives the infusion. Encouraged her to follow with her primary care physician to get her anxiety under control.] Dragon Disclaimer Dragon Disclaimer This electronic medical record was generated, in whole or in part, using a voice recognition dictation system. Departure Departure Impression: Primary Impression: Hypomagnesemia Additional Impression: Anxiety about health Disposition: HOME, SELF-CARE Condition: IMPROVED Referrals: UNKNOWN PCP NAME (PCP) Patient Instructions: Anxiety and Panic Attacks, Hypomagnesemia Additional Instructions: Follow with your primary care physician this week for recheck. Return to the emergency department with any new or concerning symptoms Problem Qualifiers RAMONE SOARES DO Jun 11, 2019 21:47
== END 2019-06-11 23:00 | disposition home or self-care (01) ==
LOC: ER 20:01
DX: E83.42 Hypomagnesemia (principal); F41.9 Anxiety disorder, unspecified; I10 Essential (primary) hypertension; E11.40 Type 2 diabetes mellitus with diabetic neuropathy, unspecified; Z88.2 Allergy status to sulfonamides
CPT/HCPCS: 36415; 80053; 83735; 84443; 85025; 96361; 96365; 99284; J3475; J7030

== ENCOUNTER 2019-07-12 16:00 | Inpatient (IN) | payer OTHER ==
[~2019-07-12] VITALS: Ht 157.5 cm; Wt 115.7 kg
[2019-07-12] MEDS ORDERED: ALBUTEROL SULFATE 2.5 MG/3 ML NEBU. NEB ONE (16:30)
--- NOTE | 2019-07-12 16:36 | PHYS DOC ---
Past Medical History Past Medical History: Diabetes-Type II, Hypertension Additional Past Medical Histor: Neuropathy Past Surgical History: Cholecystectomy, Alcohol Use: None Drug Use: None Adult General Chief Complaint Chief Complaint: SHORTNESS OF BREATH HPI HPI Patient is a 53 year old female who presents with 1 week of shortness of air and cough with coughing up chunks of mucus. Patient states that she's been using her nebulized solution at home and is helping some. Patient states she's had pneumonia in the past but denies any lung disease. Patient states that yesterday and today she's had diarrhea was 5. Patient denies of blood in her diarrhea. Review of Systems Review of Systems Respiratory: cough or shortness of breath [] Cardiovascular: Chest tightness GI: Denies abdominal pain, nausea, vomiting, bloody stools. +diarrhea [] All other systems were reviewed and found to be within normal limits, except as documented in this note. Current Medications Current Medications Current Medications Medications (Trade) Dose Ordered Sig/Matheus Start Time Stop Time Status Last Admin Dose Admin Albuterol Sulfate (Ventolin Neb Soln) 2.5 mg 1X ONCE 07/12/19 16:30 07/12/19 16:33 DC 07/12/19 16:42 2.5 MG Ceftriaxone Sodium (Rocephin) 1 gm 1X ONCE 07/12/19 18:00 07/12/19 18:03 DC 07/12/19 19:15 1 GM Doxycycline Hyclate 100 mg/ Dextrose 100 ml @ 50 mls/hr 1X ONCE 07/12/19 18:00 07/12/19 19:59 07/12/19 18:29 50 MLS/HR Fentanyl Citrate (Fentanyl 2ml Vial) 50 mcg 1X ONCE 07/12/19 18:30 07/12/19 18:31 DC 07/12/19 19:15 50 MCG Ondansetron HCl (Zofran) 4 mg 1X ONCE 07/12/19 19:30 07/12/19 19:31 DC 07/12/19 19:27 4 MG Sodium Chloride 1,000 ml @ 1,000 mls/hr 1X ONCE 07/12/19 18:30 07/12/19 19:29 DC 07/12/19 19:17 1,000 MLS/HR Allergies Allergies Allergies Coded Allergies Type Severity Reaction Last Updated Verified Sulfa (Sulfonamide Antibiotics) Allergy Intermediate Rash 08/23/18 Yes Physical Exam Physical Exam Constitutional: Well developed, well nourished, no acute distress, non-toxic appearance. [] HENT: Normocephalic, atraumatic, bilateral external ears normal, oropharynx moist, no oral exudates, nose normal. [] Eyes: PERRLA, EOMI, conjunctiva normal, no discharge. [] Neck: Normal range of motion, no tenderness, supple, no stridor. [] Cardiovascular:Heart rate regular rhythm, no murmur [] Lungs & Thorax: Bilateral upper breath sounds clear and diminished to lower lobes to auscultation [] Abdomen: Bowel sounds normal, soft, no tenderness, no masses, no pulsatile masses. [] Skin: Warm, dry, no erythema, no rash. [] Back: No tenderness, no CVA tenderness. [] Extremities: No tenderness, no cyanosis, no clubbing, ROM intact, no edema. [] Neurologic: Alert and oriented X 3, normal motor function, normal sensory function, no focal deficits noted. [] Psychologic: Affect normal, judgement normal, mood normal. [] Current Patient Data Vital Signs Vital Signs Date Time Temp Pulse Resp B/P (MAP) Pulse Ox O2 Delivery O2 Flow Rate FiO2 07/12/19 16:45 Room Air 07/12/19 16:30 98.1 105 20 171/75 (107) 97 98.1 Lab Values Laboratory Tests Test 07/12/19 16:15 07/12/19 16:50 07/12/19 17:25 07/12/19 18:00 Urine Collection Type Unknown Urine Color Yellow Urine Clarity Clear Urine pH 5.0 Urine Specific [place] 1.020 Urine Protein Negative mg/dL (NEG-TRACE) Urine Glucose (UA) 100 mg/dL (NEG) Urine Ketones (Stick) Trace mg/dL (NEG) Urine Blood Negative (NEG) Urine Nitrite Negative (NEG) Urine Bilirubin Negative (NEG) Urine Urobilinogen Dipstick 0.2 mg/dL (0.2 mg/dL) Urine Leukocyte Esterase Negative (NEG) Urine RBC Occ /HPF (0-2) Urine WBC 1-4 /HPF (0-4) Urine Squamous Epithelial Cells Mod /LPF Urine Bacteria Few /HPF (0-FEW) Urine Mucus Mod /LPF White Blood Count 11.8 x10^3/uL (4.0-11.0) H Red Blood Count 4.35 x10^6/uL (3.50-5.40) Hemoglobin 13.3 g/dL (12.0-15.5) Hematocrit 39.4 % (36.0-47.0) Mean Corpuscular Volume 91 fL (79-100) Mean Corpuscular Hemoglobin 31 pg (25-35) Mean Corpuscular Hemoglobin Concent 34 g/dL (31-37) Red Cell Distribution Width 14.2 % (11.5-14.5) Platelet Count 414 x10^3/uL (140-400) H Neutrophils (%) (Auto) 66 % (31-73) Lymphocytes (%) (Auto) 25 % (24-48) Monocytes (%) (Auto) 5 % (0-9) Eosinophils (%) (Auto) 3 % (0-3) Basophils (%) (Auto) 1 % (0-3) Neutrophils # (Auto) 7.8 x10^3/uL (1.8-7.7) H Lymphocytes # (Auto) 3.0 x10^3/uL (1.0-4.8) Monocytes # (Auto) 0.6 x10^3/uL (0.0-1.1) Eosinophils # (Auto) 0.3 x10^3/uL (0.0-0.7) Basophils # (Auto) 0.1 x10^3/uL (0.0-0.2) Sodium Level 141 mmol/L (136-145) Potassium Level 3.6 mmol/L (3.5-5.1) Chloride Level 100 mmol/L (98-107) Carbon Dioxide Level 27 mmol/L (21-32) Anion Gap 14 (6-14) Blood Urea Nitrogen 27 mg/dL (7-20) H Creatinine 1.0 mg/dL (0.6-1.0) Estimated GFR (Cockcroft-Gault) 58.0 BUN/Creatinine Ratio 27 (6-20) H Glucose Level 248 mg/dL (70-99) H Calcium Level 10.6 mg/dL (8.5-10.1) H Total Bilirubin 0.2 mg/dL (0.2-1.0) Aspartate Amino Transferase (AST) 15 U/L (15-37) Alanine Aminotransferase (ALT) 30 U/L (14-59) Alkaline Phosphatase 129 U/L (46-116) H Troponin I Quantitative < 0.017 ng/mL (0.000-0.055) Total Protein 7.4 g/dL (6.4-8.2) Albumin 3.4 g/dL (3.4-5.0) Albumin/Globulin Ratio 0.9 (1.0-1.7) L Influenza Type A Antigen Negative (NEGATIVE) Influenza Type B Antigen Negative (NEGATIVE) Lactic Acid Level 4.5 mmol/L (0.4-2.0) *H Laboratory Tests 07/12/19 16:50 Laboratory Tests 07/12/19 16:50 EKG EKG Sinus Rhythm and no STEMI[] Interpretation Time: [address] Mehta Radiology/Procedures Radiology/Procedures [] Impressions: [facility] [address] [address] IMAGING REPORT Signed PATIENT: JOSE WREN ACCOUNT: [id number] : 1965 LOCATION: ER AGE: 53 SEX: F EXAM STATUS: REG ER ORD. PHYSICIAN: VENKAT RENE APRN REASON: Short of breath, cough x a week PROCEDURE: CHEST PA & LATERAL Two-view chest dated 07/12/2019. Comparison made to 05/22/2019. CLINICAL INDICATION: Shortness of breath and cough for a week. FINDINGS: PA and lateral views of the chest obtained. Heart and mediastinal contours are stable. There is some patchy increased density at both lung bases. No consolidation or pleural effusion. No pneumothorax. IMPRESSION: 1. No evidence of focal pneumonia. 2. Patchy bibasilar opacities, likely atelectasis. Electronically signed by: Jackson Lawrence MD (07/12/2019 4:46 PM) [facility] DICTATED and SIGNED BY: JACKSON LAWRENCE MD DATE: 07/12/19 1646 Course & Med Decision Making Course & Med Decision Making States she has generalized chest tightness. Speaks in full clear senses. Skin pink warm and dry. Mucous membranes moist. Bilateral tympanic are reddened. Patient denies fever or any other symptoms. Patient states that she does not want any steroids and she is refusing to take any steroids due to her diabetes. Lungs are clear in upper lobes but diminished in lower lobes. Abdomen is soft and nontender. Patient denies any abdominal pain. Alert and oriented. Ambulatory with a steady gait. Patient denies dizziness, headache, syncope, chest pain, dysuria, vomiting, nausea, visual changes, weakness, numbness or tingling. Chest xray shows IMPRESSION: 1. No evidence of focal pneumonia. 2. Patchy bibasilar opacities, likely atelectasis. I am giving the patient Rocephin and Doxycycline IV in the ED. I have ordered 2 L of normal saline in the ED. Lactic acid is elevated. Patient meets sepsis criteria. Patient be admitted for sepsis and possible pneumonia. Dragon Disclaimer Dragon Disclaimer This electronic medical record was generated, in whole or in part, using a voice recognition dictation system. Date and Time of Reassessment Date: Jul 12, 2019 Time: 19:38 Fluid Challenge Is the fluid challenge complet: No IBW Target Volume Used: No BMI > 30: Yes Vital Signs Vital Signs: Vital Signs Date Time Temp Pulse Resp B/P (MAP) Pulse Ox O2 Delivery O2 Flow Rate FiO2 07/12/19 16:45 Room Air 07/12/19 16:30 98.1 105 20 171/75 (107) 97 98.1 Temperature Source: Oral Respirations Respiratory Effort: Normal Respiratory Pattern: Normal Cardiovascular Pulse Rhythm: Regular Heart: Nml rate, reg. rhythm Lung Sounds Breath Sounds: Diminished Capillary Refil Capillary Refill: Rt Hand > 3 seconds Peripheral Pulse Pulse Location: Radial Pulse Strength: Normal (2+) Pulse Assessment Method: Monitor Integumentary Skin: Warm Skin Moisture: Dry Skin Turgor: Normal Skin Color: warm Fingernail Color: WNL Departure Departure Impression: Primary Impression: Sepsis Additional Impression: Pneumonia Disposition: 09 ADMITTED INPATIENT Admitting Physician: JUAN M Condition: STABLE Referrals: UNKNOWN PCP NAME (PCP) Problem Qualifiers Primary Impression: Sepsis Sepsis type: sepsis due to unspecified organism Sepsis acute organ dysfunction status: without acute organ dysfunction Qualified Codes: A41.9 - Sepsis, unspecified organism Additional Impression: Pneumonia Pneumonia type: due to unspecified organism Laterality: unspecified laterality Lung location: lower lobe of lung Qualified Codes: J18.9 - Pneumonia, unspecified organism VENKAT RENE MOLD CAR PUSHER Jul 12, 2019 16:35
--- NOTE | 2019-07-12 16:49 | RAD ---
Two-view chest dated 07/12/2019. Comparison made to 05/22/2019. CLINICAL INDICATION: Shortness of breath and cough for a week. FINDINGS: PA and lateral views of the chest obtained. Heart and mediastinal contours are stable. There is some patchy increased density at both lung bases. No consolidation or pleural effusion. No pneumothorax. IMPRESSION: 1. No evidence of focal pneumonia. 2. Patchy bibasilar opacities, likely atelectasis. Electronically signed by: Jackson Lawrence MD (07/12/2019 4:46 PM) [facility]
[2019-07-12 16:56] LABS: BILIRUBIN,URINE NEGATIVE (NEG); CLARITY,URINE CLEAR; COLOR,URINE YELLOW; NITRITE,URINE NEGATIVE (NEG); PROTEIN,URINE NEGATIVE (NEG-TRACE); UROBILINOGEN,URINE 0.2 mg/dL (0.2 mg/dL)
[2019-07-12 17:08] LABS: BASO # 0.1 x10^3/uL (0.0-0.2); BASO % 1 % (0-3); EOS # 0.3 x10^3/uL (0.0-0.7); EOS % 3 % (0-3); HEMATOCRIT 39.4 % (36.0-47.0); HEMOGLOBIN 13.3 g/dL (12.0-15.5); LYMPH % 25 % (24-48); MEAN CORPUSCULAR HEMOGLOBIN 31 pg (25-35); MEAN CORPUSCULAR HGB CONC 34 g/dL (31-37); MEAN CORPUSCULAR VOLUME 91 fL (79-100); MONO # 0.6 x10^3/uL (0.0-1.1); MONO % 5 % (0-9); NEUT # 7.8 x10^3/uL (1.8-7.7); NEUT % 66 % (31-73); PLATELET COUNT 414 x10^3/uL (140-400); RED BLOOD COUNT 4.35 x10^6/uL (3.50-5.40); RED CELL DISTRIBUTION WIDTH 14.2 % (11.5-14.5); WHITE BLOOD COUNT 11.8 x10^3/uL (4.0-11.0)
[2019-07-12 17:14] LABS: BACTERIA,URINE FEW /HPF (0-FEW); RBC,URINE OCC /HPF (0-2); SQUAMOUS EPITHELIAL CELL,UR MOD /LPF
[2019-07-12 17:23] LABS: CALCIUM 10.6 mg/dL (8.5-10.1); POTASSIUM 3.6 mmol/L (3.5-5.1)
[2019-07-12 17:29] LABS: ALBUMIN 3.4 g/dL (3.4-5.0); ALBUMIN/GLOBULIN RATIO 0.9 (1.0-1.7); TOTAL BILIRUBIN 0.2 mg/dL (0.2-1.0); TOTAL PROTEIN 7.4 g/dL (6.4-8.2)
[2019-07-12 17:59] LABS: INFLUENZA A PATIENT NEGATIVE (NEGATIVE); INFLUENZA B PATIENT NEGATIVE (NEGATIVE)
[2019-07-12] MEDS ORDERED: cefTRIAXone IV Push 1 GM VIAL. IVP ONE (18:00)
[2019-07-12] MEDS ORDERED: DOXYCYCLINE HYCLATE 100 MG in IV DEXTROSE 5% 100ML 100 ML IV ONE (18:00)
[2019-07-12] MEDS ORDERED: IV NORMAL SALINE 1000ML BAG 1,000 ML IV ONE ×2 (18:30→19:45)
[2019-07-12] MEDS ORDERED: fentaNYL PF VIAL 100 MCG/2 ML VIAL IVP ONE (18:30)
[2019-07-12] MEDS ORDERED: ONDANSETRON PF 4 MG/2 ML VIAL. IV ONE (19:30)
[2019-07-12] MEDS ORDERED: ONDANSETRON PF 4 MG/2 ML VIAL. IV PRN (20:00)
[2019-07-12] MEDS ORDERED: fentaNYL PF VIAL 100 MCG/2 ML VIAL IV PRN (20:00)
[2019-07-12] MEDS ORDERED: ACETAMINOPHEN 325 MG TABLET. PO PRN (20:00)
[2019-07-12 21:10] VITALS: BP 153/94
[2019-07-12] MEDS: IPRATRPIUM/ALBUTEROL 0.5/2.5MG 3 ML NEBU. NEB SCH (21:18)
[2019-07-12] MEDS ORDERED: OXYC5CAP PO ×2 (21:34)
[2019-07-12] MEDS ORDERED: HYDR25TA10 PO (21:34)
[2019-07-12] MEDS ORDERED: INSU100V13 SQ (21:34)
[2019-07-12] MEDS ORDERED: METF10007 PO (21:34)
[2019-07-12] MEDS: GABAPENTIN 300 MG CAPSULE. PO SCH (22:40)
[2019-07-12] MEDS: oxyCODONE IR 5 MG TABLET PO SCH (22:40)
[2019-07-12] MEDS: BENZONATATE 100 MG CAPSULE. PO SCH (22:40)
[2019-07-12] MEDS ORDERED: INSULIN GLARGINE SYRINGE. SQ ONE (23:00)
[2019-07-12 23:20] VITALS: BP 154/83
[2019-07-13 03:30] VITALS: BP 154/81
[2019-07-13] MEDS: BENZOCAINE/MENTHOL LOZENGE. PO PRN ×2 (04:23→13:15)
[2019-07-13] MEDS: oxyCODONE IR 5 MG TABLET PO PRN (04:24)
--- NOTE | 2019-07-13 04:37 | EKG ---
[facility] [address] [place] [address] Test Date: 2019-07-12 Test Time: 17:23:58 Pat Name: JOSE WREN Department: Room: Gender: F Physics Tutor: : 1965 Requested By: VENKAT RENE Order Number: [id number] Reading MD: Measurements Intervals [place] Rate: 94 P: 7 [place]: 150 QRS: 9 QRSD: 84 T: 62 QT: 318 QTc: 402 Interpretive Statements SINUS RHYTHM R-S TRANSITION ZONE IN V LEADS DISPLACED TO THE LEFT NON SPECIFIC ST-T ABNORMALITY (ELEVATION) OTHERWISE NORMAL ECG No previous ECG available for comparison
[2019-07-13 07:30] VITALS: BP 129/78
[2019-07-13] MEDS ORDERED: metFORMIN 500 MG TABLET PO SCH (08:00)
[2019-07-13] MEDS: IPRATRPIUM/ALBUTEROL 0.5/2.5MG 3 ML NEBU. NEB SCH ×4 (08:04→19:33)
[2019-07-13] MEDS: CHOLECALCIFEROL (VITAMIN D3) 5,000 UNIT CAPSULE PO SCH (08:20)
[2019-07-13] MEDS: hydroCHLOROthiazide 25 MG TABLET PO SCH (08:20)
[2019-07-13] MEDS: oxyCODONE IR 5 MG TABLET PO SCH ×3 (08:21→20:06)
[2019-07-13] MEDS: GABAPENTIN 300 MG CAPSULE. PO SCH ×4 (08:21→20:07)
[2019-07-13] MEDS: BENZONATATE 100 MG CAPSULE. PO SCH ×3 (08:22→20:06)
[2019-07-13] MEDS: INSULIN LISPRO 300 UNITS/3 ML VIAL. SQ SCH ×3 (08:37→18:09)
[2019-07-13] MEDS: INSULIN GLARGINE SYRINGE. SQ SCH ×2 (08:44→20:15)
[2019-07-13 11:13] VITALS: BP 139/79
--- NOTE | 2019-07-13 11:28 | PDOC1 ---
History and Physical Date of Admission Date of Admission DATE: 07/13/19 TIME: 11:27 Identification/Chief Complaint Chief Complaint SEEN IN ER, 53 year old female who presents with 1 week of shortness of air and cough with coughing up chunks of mucus. Patient states that she's been using her nebulized solution at home and is helping some. STATES SHE IS EXPOSED TO A [employer] fumes at work, has not been wearing a mask, consistently at work, has not smoked x 6 weeks Past Medical History Past Medical History Past Medical History Past Medical History Past Medical History: Diabetes-Type II, Hypertension Additional Past Medical Histor: Neuropathy Past Surgical History: Cholecystectomy, Alcohol Use: None Drug Use: None FHX MORBID OBESITY Pulmonary: Asthma, Bronchitis, COPD Psych: Addictions Infectious disease: No pertinent hx Family History Family History: Hypertension Social History Smoke: <1 pack per day ALCOHOL: occassional Drugs: None Current Problem List Problem List Problems Medical Problems: (1) Pneumonia Status: Acute Current Medications Current Medications Current Medications Albuterol Sulfate (Ventolin Neb Soln) 2.5 mg 1X ONCE NEB Last administered on 07/12/19at 16:42; Start 07/12/19 at 16:30; Stop 07/12/19 at 16:33; Status DC Ceftriaxone Sodium (Rocephin) 1 gm 1X ONCE IVP Last administered on 07/12/19 19:15; Start 07/12/19 at 18:00; Stop 07/12/19 at 18:03; Status DC Doxycycline Hyclate 100 mg/ Dextrose 100 ml @ 50 mls/hr 1X ONCE IV Last administered on 07/12/19 18:29; Start 07/12/19 at 18:00; Stop 07/12/19 at 19:59; Status DC Sodium Chloride 1,000 ml @ 1,000 mls/hr 1X ONCE IV Last administered on 07/12/19 19:17; Start 07/12/19 at 18:30; Stop 07/12/19 at 19:29; Status DC Fentanyl Citrate (Fentanyl 2ml Vial) 50 mcg 1X ONCE IVP Last administered on 07/12/19 19:15; Start 07/12/19 at 18:30; Stop 07/12/19 at 18:31; Status DC Ondansetron HCl (Zofran) 4 mg 1X ONCE IV Last administered on 07/12/19 19:27; Start 07/12/19 at 19:30; Stop 07/12/19 at 19:31; Status DC Sodium Chloride 1,000 ml @ 1,000 mls/hr 1X ONCE IV Last administered on 07/12 20:40; Start 07/12/19 at 19:45; Stop 07/12/19 at 20:44; Status DC Ondansetron HCl (Zofran) 4 mg PRN Q8HRS PRN IV NAUSEA/VOMITING; Start 07/12/19 at 20:00; Stop 07/13/19 at 19:59 Fentanyl Citrate (Fentanyl 2ml Vial) 50 mcg PRN Q1HR PRN IV PAIN Last administered on 07/12/19 20:46; Start 07/12/19 at 20:00; Stop 07/13/19 at 19:59 Acetaminophen (Tylenol) 650 mg PRN Q4HRS PRN PO FEVER; Start 07/12/19 at 20:00; Stop 07/13/19 at 19:59 Albuterol/ Ipratropium (Duoneb) 3 ml RTQID NEB Last administered on 07/13/19 08:04; Start 07/12/19 at 20:00; Stop 07/13/19 at 19:59 Benzonatate (Tessalon Perle) 100 mg TID PO Last administered on 07/13/19 08:22; Start 07/12/19 at 22:00 Gabapentin (Neurontin) 600 mg QID PO Last administered on 07/13/19 08:21; Start 07/12/19 at 22:00 Hydrochlorothiazide (Hydrodiuril) 25 mg DAILY08 PO Last administered on 07/13/19 08:20; Start 07/13/19 at 08:00 Vitamin D (Vitamin D3) 5,000 unit DAILY PO Last administered on 07/13/19 08:20; Start 07/13/19 at 09:00 Insulin Human Lispro (HumaLOG) 25 units TIDWMEALS SQ Last administered on 07/13/19 08:37; Start 07/13/19 at 08:00 Insulin Glargine (Lantus Syringe) 42 unit DAILYWBKFT SQ Last administered on 07/13/19 08:44; Start 07/13/19 at 08:00 Insulin Glargine (Lantus Syringe) 42 unit QHS SQ ; Start 07/13/19 at 21:00 Metformin HCl (Glucophage) 1,000 mg BIDWMEALS PO Last administered on 07/13/19at 08:20; Start 07/13/19 at 08:00 Oxycodone HCl (Roxicodone) 5 mg TID PO Last administered on 07/13/19at 08:21; Start 07/12/19 at 22:00 Oxycodone HCl (Roxicodone) 10 mg PRN DAILY PRN PO SEVERE PAIN 7-10 Last administered on 07/13/19at 04:24; Start 07/12/19 at 22:00 Insulin Glargine (Lantus Syringe) 42 unit 1X ONCE SQ Last administered on 07/12/19at 22:44; Start 07/12/19 at 23:00; Stop 07/12/19 at 23:01; Status DC Albuterol Sulfate (Ventolin Neb Soln) 2.5 mg PRN Q4HRS PRN NEB SHORTNESS OF BREATH; Start 07/13/19 at 04:00 Throat Lozenges (Cepacol Sore Throat Lozenge) 1 ever PRN Q2HRS PRN PO SORE THROAT Last administered on 07/13/19at 04:23; Start 07/13/19 at 04:00 Active Scripts Active Albuterol Sulfate Conc Neb Soln (Albuterol Sulfate) 2.5 Mg/0.5 Ml Vial.neb 1 Vial NEB Q4HRS Tessalon Perle (Benzonatate) 100 Mg Capsule 1 Cap PO TID Proair Hfa (Albuterol Sulfate) 8.5 Gm Hfa.aer.ad 1 Puff INH PRN Q6HRS PRN Azithromycin Tablet (Azithromycin) 250 Mg Tablet 1 Pkg PO UD Enphda-Yhjridmy-Phlq 50-325-40 (Butalb/Acetaminophen/Caffeine) 1 Each Tablet 1 Each PO Q6HRS PRN Prednisone 20 Mg Tablet 2 Tab PO DAILY Start this prescription tomrrow, 03/16/19 Keflex (Cephalexin) 500 Mg Capsule 2 Cap PO Q12HR Zithromax (Azithromycin) 250 Mg Tablet 1 Pkg PO UD Take 2 tablets on day 1 and then 1 tablet each day for the next 4 days as directed Proair Hfa Inhaler (Albuterol Sulfate) 8.5 Gm Hfa.aer.ad 1 Puff INH PRN Q6HRS PRN Prednisone 20 Mg Tablet 2 Tab PO DAILY Start this prescription 08/07/18 Reported Metformin Hcl 1,000 Mg Tablet 1,000 Mg PO BIDWMEALS Hydrochlorothiazide 25 Mg Tablet 25 Mg PO DAILY08 Oxycodone Hcl 5 Mg Capsule 5 Mg PO TID Oxycodone Hcl 5 Mg Capsule 10 Mg PO DAILY08 PRN Levemir (Insulin Detemir) 100 Unit/1 Ml Vial 42 Unit SQ DAILYWBKFT Vitamin D3 (Cholecalciferol (Vitamin D3)) 5,000 Unit Tablet 1 Tab PO DAILY Gabapentin 300 Mg Capsule 600 Mg PO QID Glipizide 10 Mg Tablet 1 Tab PO BID Levemir (Insulin Detemir) 100 Unit/1 Ml Vial 42 Unit SQ HS Novolog Flexpen (Insulin Aspart) 100 Unit/1 Ml Insuln.pen 25 Unit SQ TIDWMEALS Allergies Allergies: Coded Allergies: Sulfa (Sulfonamide Antibiotics) (Verified Allergy, Intermediate, Rash, 08/23/18) ROS Review of System Review of Systems Review of Systems Respiratory: cough or shortness of breath [] Cardiovascular: Chest tightness GI: Denies abdominal pain, nausea, vomiting, bloody stools. +diarrhea [] 14 PT systems were reviewed and found to be within normal limits, except as documented General: YES: Fatigue Hematological and Lymphatic: No: Bleeding Problems, Blood Clots, Blood Transfusions, Brusing, Night Sweats, Pallor, Swollen Lymph Nodes, Other Respiratory: YES: Cough, Shortness of breath, SOB with excertion Physical Exam Physical Exam Physical Exam Physical Exam Constitutional: Well developed, well nourished, no acute distress, non-toxic appearance. [] HENT: Normocephalic, atraumatic, bilateral external ears normal, oropharynx moist, no oral exudates, nose normal. [] Eyes: PERRLA, EOMI, conjunctiva normal, no discharge. [] Neck: Normal range of motion, no tenderness, supple, no stridor. [] Cardiovascular:Heart rate regular rhythm, no murmur [] Lungs & Thorax: Bilateral upper breath sounds clear and diminished to lower lobes to auscultation [] Abdomen: Bowel sounds normal, soft, no tenderness, no masses, no pulsatile masses. [] Skin: Warm, dry, no erythema, no rash. [] Back: No tenderness, no CVA tenderness. [] Extremities: No tenderness, no cyanosis, no clubbing, ROM intact, no edema. [] Neurologic: Alert and oriented X 3, normal motor function, normal sensory function, no focal deficits noted. [] Psychologic: Affect normal, judgement normal, mood normal. [] General: Alert, Oriented X3, Cooperative, No acute distress Heart: RRR Rectal Exam: not examined Neuro: Normal speech, Cranial nerves 3-12 NL Psych/Mental Status: Mental status NL, Mood NL Vitals Vitals Vital Signs Date Time Temp Pulse Resp B/P (MAP) Pulse Ox O2 Delivery O2 Flow Rate FiO2 07/13/19 11:13 98.2 95 18 139/79 (99) 95 Room Air 98.2 Labs Labs Laboratory Tests Test 07/12/19 16:15 07/12/19 16:50 07/12/19 17:25 07/12/19 18:00 Urine Collection Type Unknown Urine Color Yellow Urine Clarity Clear Urine pH 5.0 Urine Specific [place] 1.020 Urine Protein Negative mg/dL (NEG-TRACE) Urine Glucose (UA) 100 mg/dL (NEG) Urine Ketones (Stick) Trace mg/dL (NEG) Urine Blood Negative (NEG) Urine Nitrite Negative (NEG) Urine Bilirubin Negative (NEG) Urine Urobilinogen Dipstick 0.2 mg/dL (0.2 mg/dL) Urine Leukocyte Esterase Negative (NEG) Urine RBC Occ /HPF (0-2) Urine WBC 1-4 /HPF (0-4) Urine Squamous Epithelial Cells Mod /LPF Urine Bacteria Few /HPF (0-FEW) Urine Mucus Mod /LPF White Blood Count 11.8 x10^3/uL (4.0-11.0) Red Blood Count 4.35 x10^6/uL (3.50-5.40) Hemoglobin 13.3 g/dL (12.0-15.5) Hematocrit 39.4 % (36.0-47.0) Mean Corpuscular Volume 91 fL (79-100) Mean Corpuscular Hemoglobin 31 pg (25-35) Mean Corpuscular Hemoglobin Concent 34 g/dL (31-37) Red Cell Distribution Width 14.2 % (11.5-14.5) Platelet Count 414 x10^3/uL (140-400) Neutrophils (%) (Auto) 66 % (31-73) Lymphocytes (%) (Auto) 25 % (24-48) Monocytes (%) (Auto) 5 % (0-9) Eosinophils (%) (Auto) 3 % (0-3) Basophils (%) (Auto) 1 % (0-3) Neutrophils # (Auto) 7.8 x10^3/uL (1.8-7.7) Lymphocytes # (Auto) 3.0 x10^3/uL (1.0-4.8) Monocytes # (Auto) 0.6 x10^3/uL (0.0-1.1) Eosinophils # (Auto) 0.3 x10^3/uL (0.0-0.7) Basophils # (Auto) 0.1 x10^3/uL (0.0-0.2) Sodium Level 141 mmol/L (136-145) Potassium Level 3.6 mmol/L (3.5-5.1) Chloride Level 100 mmol/L (98-107) Carbon Dioxide Level 27 mmol/L (21-32) Anion Gap 14 (6-14) Blood Urea Nitrogen 27 mg/dL (7-20) Creatinine 1.0 mg/dL (0.6-1.0) Estimated GFR (Cockcroft-Gault) 58.0 BUN/Creatinine Ratio 27 (6-20) Glucose Level 248 mg/dL (70-99) Calcium Level 10.6 mg/dL (8.5-10.1) Total Bilirubin 0.2 mg/dL (0.2-1.0) Aspartate Amino Transf (AST/SGOT) 15 U/L (15-37) Alanine Aminotransferase (ALT/SGPT) 30 U/L (14-59) Alkaline Phosphatase 129 U/L (46-116) Troponin I Quantitative < 0.017 ng/mL (0.000-0.055) Total Protein 7.4 g/dL (6.4-8.2) Albumin 3.4 g/dL (3.4-5.0) Albumin/Globulin Ratio 0.9 (1.0-1.7) Procalcitonin < 0.10 ng/mL (0.00-0.10) Influenza Type A Antigen Negative (NEGATIVE) Influenza Type B Antigen Negative (NEGATIVE) Lactic Acid Level 4.5 mmol/L (0.4-2.0) Test 07/12/19 21:09 07/12/19 22:10 07/13/19 01:40 07/13/19 03:12 Glucose (Fingerstick) 319 mg/dL (70-99) 289 mg/dL (70-99) Lactic Acid Level 3.4 mmol/L (0.4-2.0) 3.8 mmol/L (0.4-2.0) Test 07/13/19 07:34 Glucose (Fingerstick) 276 mg/dL (70-99) Laboratory Tests Test 07/12/19 16:15 07/12/19 16:50 07/12/19 17:25 07/12/19 18:00 Urine Collection Type Unknown Urine Color Yellow Urine Clarity Clear Urine pH 5.0 Urine Specific [place] 1.020 Urine Protein Negative mg/dL (NEG-TRACE) Urine Glucose (UA) 100 mg/dL (NEG) Urine Ketones (Stick) Trace mg/dL (NEG) Urine Blood Negative (NEG) Urine Nitrite Negative (NEG) Urine Bilirubin Negative (NEG) Urine Urobilinogen Dipstick 0.2 mg/dL (0.2 mg/dL) Urine Leukocyte Esterase Negative (NEG) Urine RBC Occ /HPF (0-2) Urine WBC 1-4 /HPF (0-4) Urine Squamous Epithelial Cells Mod /LPF Urine Bacteria Few /HPF (0-FEW) Urine Mucus Mod /LPF White Blood Count 11.8 x10^3/uL (4.0-11.0) Red Blood Count 4.35 x10^6/uL (3.50-5.40) Hemoglobin 13.3 g/dL (12.0-15.5) Hematocrit 39.4 % (36.0-47.0) Mean Corpuscular Volume 91 fL (79-100) Mean Corpuscular Hemoglobin 31 pg (25-35) Mean Corpuscular Hemoglobin Concent 34 g/dL (31-37) Red Cell Distribution Width 14.2 % (11.5-14.5) Platelet Count 414 x10^3/uL (140-400) Neutrophils (%) (Auto) 66 % (31-73) Lymphocytes (%) (Auto) 25 % (24-48) Monocytes (%) (Auto) 5 % (0-9) Eosinophils (%) (Auto) 3 % (0-3) Basophils (%) (Auto) 1 % (0-3) Neutrophils # (Auto) 7.8 x10^3/uL (1.8-7.7) Lymphocytes # (Auto) 3.0 x10^3/uL (1.0-4.8) Monocytes # (Auto) 0.6 x10^3/uL (0.0-1.1) Eosinophils # (Auto) 0.3 x10^3/uL (0.0-0.7) Basophils # (Auto) 0.1 x10^3/uL (0.0-0.2) Sodium Level 141 mmol/L (136-145) Potassium Level 3.6 mmol/L (3.5-5.1) Chloride Level 100 mmol/L (98-107) Carbon Dioxide Level 27 mmol/L (21-32) Anion Gap 14 (6-14) Blood Urea Nitrogen 27 mg/dL (7-20) Creatinine 1.0 mg/dL (0.6-1.0) Estimated GFR (Cockcroft-Gault) 58.0 BUN/Creatinine Ratio 27 (6-20) Glucose Level 248 mg/dL (70-99) Calcium Level 10.6 mg/dL (8.5-10.1) Total Bilirubin 0.2 mg/dL (0.2-1.0) Aspartate Amino Transf (AST/SGOT) 15 U/L (15-37) Alanine Aminotransferase (ALT/SGPT) 30 U/L (14-59) Alkaline Phosphatase 129 U/L (46-116) Troponin I Quantitative < 0.017 ng/mL (0.000-0.055) Total Protein 7.4 g/dL (6.4-8.2) Albumin 3.4 g/dL (3.4-5.0) Albumin/Globulin Ratio 0.9 (1.0-1.7) Procalcitonin < 0.10 ng/mL (0.00-0.10) Influenza Type A Antigen Negative (NEGATIVE) Influenza Type B Antigen Negative (NEGATIVE) Lactic Acid Level 4.5 mmol/L (0.4-2.0) Test 07/12/19 21:09 07/12/19 22:10 07/13/19 01:40 07/13/19 03:12 Glucose (Fingerstick) 319 mg/dL (70-99) 289 mg/dL (70-99) Lactic Acid Level 3.4 mmol/L (0.4-2.0) 3.8 mmol/L (0.4-2.0) Test 07/13/19 07:34 Glucose (Fingerstick) 276 mg/dL (70-99) Images Images Two-view chest dated 07/12/2019. Comparison made to 05/22/2019. CLINICAL INDICATION: Shortness of breath and cough for a week. FINDINGS: PA and lateral views of the chest obtained. Heart and mediastinal contours are stable. There is some patchy increased density at both lung bases. No consolidation or pleural effusion. No pneumothorax. IMPRESSION: 1. No evidence of focal pneumonia. 2. Patchy bibasilar opacities, likely atelectasis. Electronically signed by: Sourav Lawrence MD (07/12/2019 4:46 PM) [facility] DICTATED and SIGNED BY: SOURAV LAWRENCE MD DATE: 07/12/19 1646 VTE Prophylaxis Ordered VTE Prophylaxis Devices: No VTE Pharmacological Prophylaxi: Yes Assessment/Plan Assessment/Plan IMPRESSION: 1. No evidence of focal pneumonia. BY CXR , SUSPECT EARLY PNEUMONIA CLINICALLY 2. Patchy bibasilar opacities, likely atelectasis. 3. SEPSIS 4. MORBID OBESITY 5. LACTIC ACIDOSIS 6. DIABETES ADMIT BLOOD CULT IV ANTIBIOTICS DOXY, ROCEPHIN DUONEBS DVT PROPHYLAXIS IV FLUID SUPPORT PULM CONSULT hold metformin due to lactic acidosis ACCUCHECKS 74 MIN PT EXAM, CHART REVIEW, > 50% OF TIME SPENT WITH EXAM, CHART review, pt care coordination SHERIF LUGO MD Jul 13, 2019 11:28
[2019-07-13] MEDS: DOXYCYCLINE HYCLATE 100 MG TABLET PO SCH ×2 (12:15→20:06)
[2019-07-13] MEDS: guaiFENesin/CODEINE 100mg/10mg 5 ML LIQUID PO PRN ×2 (13:15→20:06)
[2019-07-13 15:05] VITALS: BP 138/76
[2019-07-13] MEDS: cefTRIAXone IV Push 2 GM VIAL. IVP SCH (18:09)
[2019-07-13] MEDS: NICOTINE 14MG PATCH. TD SCH (18:20)
--- NOTE | 2019-07-13 19:05 | PDOC ---
PULMONARY PROGRESS NOTES Vitals Vital Signs Date Time Temp Pulse Resp B/P (MAP) Pulse Ox O2 Delivery O2 Flow Rate FiO2 07/13/19 18:50 97 Room Air 07/13/19 15:05 98.1 96 18 138/76 (96) 98.1 Lungs: Wheezing, Crackles Skin: Warm Labs Laboratory Tests Test 07/12/19 16:15 07/12/19 16:50 07/12/19 17:25 07/12/19 18:00 Urine Collection Type Unknown Urine Color Yellow Urine Clarity Clear Urine pH 5.0 Urine Specific [place] 1.020 Urine Protein Negative mg/dL (NEG-TRACE) Urine Glucose (UA) 100 mg/dL (NEG) Urine Ketones (Stick) Trace mg/dL (NEG) Urine Blood Negative (NEG) Urine Nitrite Negative (NEG) Urine Bilirubin Negative (NEG) Urine Urobilinogen Dipstick 0.2 mg/dL (0.2 mg/dL) Urine Leukocyte Esterase Negative (NEG) Urine RBC Occ /HPF (0-2) Urine WBC 1-4 /HPF (0-4) Urine Squamous Epithelial Cells Mod /LPF Urine Bacteria Few /HPF (0-FEW) Urine Mucus Mod /LPF White Blood Count 11.8 x10^3/uL (4.0-11.0) Red Blood Count 4.35 x10^6/uL (3.50-5.40) Hemoglobin 13.3 g/dL (12.0-15.5) Hematocrit 39.4 % (36.0-47.0) Mean Corpuscular Volume 91 fL (79-100) Mean Corpuscular Hemoglobin 31 pg (25-35) Mean Corpuscular Hemoglobin Concent 34 g/dL (31-37) Red Cell Distribution Width 14.2 % (11.5-14.5) Platelet Count 414 x10^3/uL (140-400) Neutrophils (%) (Auto) 66 % (31-73) Lymphocytes (%) (Auto) 25 % (24-48) Monocytes (%) (Auto) 5 % (0-9) Eosinophils (%) (Auto) 3 % (0-3) Basophils (%) (Auto) 1 % (0-3) Neutrophils # (Auto) 7.8 x10^3/uL (1.8-7.7) Lymphocytes # (Auto) 3.0 x10^3/uL (1.0-4.8) Monocytes # (Auto) 0.6 x10^3/uL (0.0-1.1) Eosinophils # (Auto) 0.3 x10^3/uL (0.0-0.7) Basophils # (Auto) 0.1 x10^3/uL (0.0-0.2) Sodium Level 141 mmol/L (136-145) Potassium Level 3.6 mmol/L (3.5-5.1) Chloride Level 100 mmol/L (98-107) Carbon Dioxide Level 27 mmol/L (21-32) Anion Gap 14 (6-14) Blood Urea Nitrogen 27 mg/dL (7-20) Creatinine 1.0 mg/dL (0.6-1.0) Estimated GFR (Cockcroft-Gault) 58.0 BUN/Creatinine Ratio 27 (6-20) Glucose Level 248 mg/dL (70-99) Calcium Level 10.6 mg/dL (8.5-10.1) Total Bilirubin 0.2 mg/dL (0.2-1.0) Aspartate Amino Transf (AST/SGOT) 15 U/L (15-37) Alanine Aminotransferase (ALT/SGPT) 30 U/L (14-59) Alkaline Phosphatase 129 U/L (46-116) Troponin I Quantitative < 0.017 ng/mL (0.000-0.055) Total Protein 7.4 g/dL (6.4-8.2) Albumin 3.4 g/dL (3.4-5.0) Albumin/Globulin Ratio 0.9 (1.0-1.7) Procalcitonin < 0.10 ng/mL (0.00-0.10) Influenza Type A Antigen Negative (NEGATIVE) Influenza Type B Antigen Negative (NEGATIVE) Lactic Acid Level 4.5 mmol/L (0.4-2.0) Test 07/12/19 21:09 07/12/19 22:10 07/13/19 01:40 07/13/19 03:12 Glucose (Fingerstick) 319 mg/dL (70-99) 289 mg/dL (70-99) Lactic Acid Level 3.4 mmol/L (0.4-2.0) 3.8 mmol/L (0.4-2.0) Test 07/13/19 07:34 07/13/19 11:27 07/13/19 16:57 Glucose (Fingerstick) 276 mg/dL (70-99) 297 mg/dL (70-99) 156 mg/dL (70-99) Laboratory Tests Test 07/12/19 21:09 07/12/19 22:10 07/13/19 01:40 07/13/19 03:12 Glucose (Fingerstick) 319 mg/dL (70-99) 289 mg/dL (70-99) Lactic Acid Level 3.4 mmol/L (0.4-2.0) 3.8 mmol/L (0.4-2.0) Test 07/13/19 07:34 07/13/19 11:27 07/13/19 16:57 Glucose (Fingerstick) 276 mg/dL (70-99) 297 mg/dL (70-99) 156 mg/dL (70-99) Medications Active Scripts Medications Dose Route/Sig Max Daily Dose Days Date Category Dose Instructions Metformin Hcl 1,000 Mg Tablet 1,000 Mg PO BIDWMEALS 07/12/19 Reported Hydrochlorothiazide 25 Mg Tablet 25 Mg PO DAILY08 07/12/19 Reported Oxycodone Hcl 5 Mg Capsule 5 Mg PO TID 07/12/19 Reported Oxycodone Hcl 5 Mg Capsule 10 Mg PO DAILY08 PRN 07/12/19 Reported Levemir (Insulin Detemir) 100 Unit/1 Ml Vial 42 Unit SQ DAILYWBKFT 07/12/19 Reported Albuterol Sulfate Conc Neb Soln (Albuterol Sulfate) 2.5 Mg/0.5 Ml Vial.neb 1 Vial NEB Q4HRS 05/22/19 Rx Tessalon Perle (Benzonatate) 100 Mg Capsule 1 Cap PO TID 05/22/19 Rx Proair Hfa (Albuterol Sulfate) 8.5 Gm Hfa.aer.ad 1 Puff INH PRN Q6HRS PRN 05/22/19 Rx Azithromycin Tablet (Azithromycin) 250 Mg Tablet 1 Pkg PO UD 05/22/19 Rx Dtcezc-Iavecjce-Akof 50-325-40 (Butalb/Acetaminophen/Caffeine) 1 Each Tablet 1 Each PO Q6HRS PRN 03/15/19 Rx Prednisone 20 Mg Tablet 2 Tab PO DAILY 03/15/19 Rx Start this prescription tomrrow, 03/16/19 Keflex (Cephalexin) 500 Mg Capsule 2 Cap PO Q12HR 10/08/18 Rx Vitamin D3 (Cholecalciferol (Vitamin D3)) 5,000 Unit Tablet 1 Tab PO DAILY 08/21/18 Reported Gabapentin 300 Mg Capsule 600 Mg PO QID 08/21/18 Reported Glipizide 10 Mg Tablet 1 Tab PO BID 08/21/18 Reported Levemir (Insulin Detemir) 100 Unit/1 Ml Vial 42 Unit SQ HS 08/21/18 Reported Novolog Flexpen (Insulin Aspart) 100 Unit/1 Ml Insuln.pen 25 Unit SQ TIDWMEALS 08/21/18 Reported Zithromax (Azithromycin) 250 Mg Tablet 1 Pkg PO UD 08/06/18 Rx Take 2 tablets on day 1 and then 1 tablet each day for the next 4 days as directed Proair Hfa Inhaler (Albuterol Sulfate) 8.5 Gm Hfa.aer.ad 1 Puff INH PRN Q6HRS PRN 08/06/18 Rx Prednisone 20 Mg Tablet 2 Tab PO DAILY 08/06/18 Rx Start this prescription 08/07/18 Impression . FULL NOTE DICTATED THANKS AGREE WITH CURRENT RX DUNIA NUNEZ MD Jul 13, 2019 19:05
[2019-07-13 19:10] VITALS: BP 146/80
[2019-07-13] MEDS: LACTOBACILLUS RHAMNOSUS GG 1 CAPSULE. PO SCH (20:06)
[2019-07-13 23:10] VITALS: BP 120/58
--- NOTE | 2019-07-14 02:21 | CONS ---
DATE OF CONSULTATION: 07/13/2019 ATTENDING PHYSICIAN: Dr. Cormier. REASON FOR CONSULTATION: The patient seen in pulmonary consultation at the request of Dr. Cormier for abnormal chest x-ray, increasing shortness of air. HISTORY OF PRESENT ILLNESS: The patient is a 53-year-old with a history of type 2 diabetes, hypertension, neuropathy, obesity, presented with increasing shortness of breath over the last week. She has failed outpatient treatment. She has been treated as an outpatient now on several occasions. In fact, she was last admitted in May at [facility] for acute exacerbation of COPD. She also had hypercapnia at that time. 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 She is not totally compliant with wearing a mask. She has cut back on her tobacco use. She is down to 1 or 2 cigarettes per day. PAST MEDICAL HISTORY: Type 2 diabetes, hypertension, neuropathy, COPD as indicated above, tobacco dependent. PAST SURGICAL HISTORY: No recent major surgery. She has had previous cholecystectomy, . FAMILY HISTORY: Hypertension. No family history of lung disorders. REVIEW OF SYSTEMS: As indicated above, otherwise, a 10-point system was reviewed and negative. CONSTITUTIONAL: No fever or chills. EYES: No change in visual acuity. HENT: No nasal congestion or sore throat. PULMONARY: As indicated above. CARDIOVASCULAR: No chest pain. No pressure. GASTROINTESTINAL: No nausea, vomiting, diarrhea. GENITOURINARY: No dysuria or frequency. MUSCULOSKELETAL: No localized muscle aches or joint pains. SKIN: No new skin rashes. NEUROLOGIC: No headaches, diplopia or blurred vision. ALLERGIES: SULFONAMIDES. PHYSICAL EXAMINATION: GENERAL: Morbid obese individual, body mass index of 46. HEENT: Eyes, the sclerae were nonicteric. NECK: Jugular venous distention could not be assessed secondary to body habitus. CHEST: Full expansion. LUNGS: Poor airway flow with no wheezes. CARDIOVASCULAR: Regular rate and rhythm with S1, S2, no S3. ABDOMEN: Obese. EXTREMITIES: No clubbing, cyanosis or pitting edema. NEUROLOGICAL: The patient was awake, alert, following commands. A detailed neuro exam was not performed. LABORATORY DATA: Serology for influenza was negative. Electrolytes were noted. Blood sugar is elevated. Lactic acid level was initially elevated. BUN 27, creatinine was 1.0. White count was elevated. Hemoglobin and hematocrit were noted. Chest x-ray revealed some basilar atelectasis, possibly opacities. IMPRESSION: 1. Progressive dyspnea secondary to acute exacerbation of chronic obstructive pulmonary disease. 2. Acute exacerbation of chronic obstructive pulmonary disease. 3. Tobacco dependence. 4. Morbid obesity. 5. Lactic acidosis. 6. Possible sepsis. 7. Type 2 diabetes. 8. Suspect obstructive sleep apnea. PLAN: 1. Continue current empiric antibiotics. 2. Steroids. 3. DVT prophylaxis. 4. Monitor blood sugars. 5. The patient instructed on the importance of discontinuing tobacco use. I think she will do well with nicotine replacement. I do appreciate the privilege in sharing in the patient's care. DUNIA NUNEZ MD DR: JESUS/nts JOB#: [id number] / [id number]
[2019-07-14] MEDS: oxyCODONE IR 5 MG TABLET PO PRN ×2 (02:51→20:23)
[2019-07-14 03:15] VITALS: BP 127/74
[2019-07-14 07:15] VITALS: BP 132/77
[2019-07-14] MEDS: ALBUTEROL SULFATE 2.5 MG/3 ML NEBU. NEB PRN ×4 (07:42→21:04)
[2019-07-14] MEDS: oxyCODONE IR 5 MG TABLET PO SCH ×3 (08:40→21:00)
[2019-07-14] MEDS: hydroCHLOROthiazide 25 MG TABLET PO SCH (08:40)
[2019-07-14] MEDS: DOXYCYCLINE HYCLATE 100 MG TABLET PO SCH ×2 (08:40→20:23)
[2019-07-14] MEDS: BENZOCAINE/MENTHOL LOZENGE. PO PRN ×2 (08:40→14:30)
[2019-07-14] MEDS: LACTOBACILLUS RHAMNOSUS GG 1 CAPSULE. PO SCH ×2 (08:40→20:23)
[2019-07-14] MEDS: BENZONATATE 100 MG CAPSULE. PO SCH ×3 (08:41→20:23)
[2019-07-14] MEDS: CHOLECALCIFEROL (VITAMIN D3) 5,000 UNIT CAPSULE PO SCH (08:41)
[2019-07-14] MEDS: GABAPENTIN 300 MG CAPSULE. PO SCH ×4 (08:41→20:22)
[2019-07-14] MEDS: guaiFENesin/CODEINE 100mg/10mg 5 ML LIQUID PO PRN ×3 (08:41→20:22)
[2019-07-14] MEDS: NICOTINE 14MG PATCH. TD SCH (08:42)
[2019-07-14 08:52] LABS: BASO # 0.1 x10^3/uL (0.0-0.2); BASO % 1 % (0-3); EOS # 0.4 x10^3/uL (0.0-0.7); EOS % 5 % (0-3); HEMOGLOBIN 12.7 g/dL (12.0-15.5); LYMPH # 3.2 x10^3/uL (1.0-4.8); LYMPH % 32 % (24-48); MEAN CORPUSCULAR HEMOGLOBIN 30 pg (25-35); MEAN CORPUSCULAR HGB CONC 34 g/dL (31-37); MEAN CORPUSCULAR VOLUME 91 fL (79-100); MONO # 0.6 x10^3/uL (0.0-1.1); MONO % 6 % (0-9); NEUT # 5.7 x10^3/uL (1.8-7.7); NEUT % 57 % (31-73); PLATELET COUNT 386 x10^3/uL (140-400); RED CELL DISTRIBUTION WIDTH 14.7 % (11.5-14.5)
[2019-07-14] MEDS: INSULIN LISPRO 300 UNITS/3 ML VIAL. SQ SCH ×3 (08:53→17:19)
[2019-07-14] MEDS: INSULIN GLARGINE SYRINGE. SQ SCH ×2 (08:55→21:00)
[2019-07-14 09:20] LABS: ALBUMIN 3.4 g/dL (3.4-5.0); ALBUMIN/GLOBULIN RATIO 0.9 (1.0-1.7); CALCIUM 9.4 mg/dL (8.5-10.1); CREATININE 1.1 mg/dL (0.6-1.0); POTASSIUM 4.1 mmol/L (3.5-5.1); TOTAL BILIRUBIN 0.3 mg/dL (0.2-1.0); TOTAL PROTEIN 7.3 g/dL (6.4-8.2)
--- NOTE | 2019-07-14 10:51 | PDOC ---
PULMONARY PROGRESS NOTES Subjective Patient is sitting at EOB, eating breakfast on room air, Denies SOA, reports minimally productive cough with yellow/brown sputum Vitals Vital Signs Date Time Temp Pulse Resp B/P (MAP) Pulse Ox O2 Delivery O2 Flow Rate FiO2 07/14/19 09:45 96 Room Air 07/14/19 07:15 98.3 93 18 132/77 (95) 98.3 ROS: No Nausea, No Chest Pain, No Increase Cough General: Alert, Oriented X4 Lungs: Wheezing, Crackles Cardiovascular: S1, S2 Abdomen: Soft, Non-tender Neuro Exam: Alert, Oriented Extremities: No Edema Skin: Warm Labs Laboratory Tests Test 07/12/19 16:15 07/12/19 16:50 07/12/19 17:25 07/12/19 18:00 Urine Collection Type Unknown Urine Color Yellow Urine Clarity Clear Urine pH 5.0 Urine Specific [place] 1.020 Urine Protein Negative mg/dL (NEG-TRACE) Urine Glucose (UA) 100 mg/dL (NEG) Urine Ketones (Stick) Trace mg/dL (NEG) Urine Blood Negative (NEG) Urine Nitrite Negative (NEG) Urine Bilirubin Negative (NEG) Urine Urobilinogen Dipstick 0.2 mg/dL (0.2 mg/dL) Urine Leukocyte Esterase Negative (NEG) Urine RBC Occ /HPF (0-2) Urine WBC 1-4 /HPF (0-4) Urine Squamous Epithelial Cells Mod /LPF Urine Bacteria Few /HPF (0-FEW) Urine Mucus Mod /LPF White Blood Count 11.8 x10^3/uL (4.0-11.0) Red Blood Count 4.35 x10^6/uL (3.50-5.40) Hemoglobin 13.3 g/dL (12.0-15.5) Hematocrit 39.4 % (36.0-47.0) Mean Corpuscular Volume 91 fL (79-100) Mean Corpuscular Hemoglobin 31 pg (25-35) Mean Corpuscular Hemoglobin Concent 34 g/dL (31-37) Red Cell Distribution Width 14.2 % (11.5-14.5) Platelet Count 414 x10^3/uL (140-400) Neutrophils (%) (Auto) 66 % (31-73) Lymphocytes (%) (Auto) 25 % (24-48) Monocytes (%) (Auto) 5 % (0-9) Eosinophils (%) (Auto) 3 % (0-3) Basophils (%) (Auto) 1 % (0-3) Neutrophils # (Auto) 7.8 x10^3/uL (1.8-7.7) Lymphocytes # (Auto) 3.0 x10^3/uL (1.0-4.8) Monocytes # (Auto) 0.6 x10^3/uL (0.0-1.1) Eosinophils # (Auto) 0.3 x10^3/uL (0.0-0.7) Basophils # (Auto) 0.1 x10^3/uL (0.0-0.2) Sodium Level 141 mmol/L (136-145) Potassium Level 3.6 mmol/L (3.5-5.1) Chloride Level 100 mmol/L (98-107) Carbon Dioxide Level 27 mmol/L (21-32) Anion Gap 14 (6-14) Blood Urea Nitrogen 27 mg/dL (7-20) Creatinine 1.0 mg/dL (0.6-1.0) Estimated GFR (Cockcroft-Gault) 58.0 BUN/Creatinine Ratio 27 (6-20) Glucose Level 248 mg/dL (70-99) Calcium Level 10.6 mg/dL (8.5-10.1) Total Bilirubin 0.2 mg/dL (0.2-1.0) Aspartate Amino Transf (AST/SGOT) 15 U/L (15-37) Alanine Aminotransferase (ALT/SGPT) 30 U/L (14-59) Alkaline Phosphatase 129 U/L (46-116) Troponin I Quantitative < 0.017 ng/mL (0.000-0.055) Total Protein 7.4 g/dL (6.4-8.2) Albumin 3.4 g/dL (3.4-5.0) Albumin/Globulin Ratio 0.9 (1.0-1.7) Procalcitonin < 0.10 ng/mL (0.00-0.10) Influenza Type A Antigen Negative (NEGATIVE) Influenza Type B Antigen Negative (NEGATIVE) Lactic Acid Level 4.5 mmol/L (0.4-2.0) Test 07/12/19 21:09 07/12/19 22:10 07/13/19 01:40 07/13/19 03:12 Glucose (Fingerstick) 319 mg/dL (70-99) 289 mg/dL (70-99) Lactic Acid Level 3.4 mmol/L (0.4-2.0) 3.8 mmol/L (0.4-2.0) Test 07/13/19 07:34 07/13/19 11:27 07/13/19 16:57 07/13/19 21:23 Glucose (Fingerstick) 276 mg/dL (70-99) 297 mg/dL (70-99) 156 mg/dL (70-99) 281 mg/dL (70-99) Test 07/14/19 07:27 07/14/19 08:20 Glucose (Fingerstick) 270 mg/dL (70-99) White Blood Count 10.0 x10^3/uL (4.0-11.0) Red Blood Count 4.20 x10^6/uL (3.50-5.40) Hemoglobin 12.7 g/dL (12.0-15.5) Hematocrit 38.0 % (36.0-47.0) Mean Corpuscular Volume 91 fL (79-100) Mean Corpuscular Hemoglobin 30 pg (25-35) Mean Corpuscular Hemoglobin Concent 34 g/dL (31-37) Red Cell Distribution Width 14.7 % (11.5-14.5) Platelet Count 386 x10^3/uL (140-400) Neutrophils (%) (Auto) 57 % (31-73) Lymphocytes (%) (Auto) 32 % (24-48) Monocytes (%) (Auto) 6 % (0-9) Eosinophils (%) (Auto) 5 % (0-3) Basophils (%) (Auto) 1 % (0-3) Neutrophils # (Auto) 5.7 x10^3/uL (1.8-7.7) Lymphocytes # (Auto) 3.2 x10^3/uL (1.0-4.8) Monocytes # (Auto) 0.6 x10^3/uL (0.0-1.1) Eosinophils # (Auto) 0.4 x10^3/uL (0.0-0.7) Basophils # (Auto) 0.1 x10^3/uL (0.0-0.2) Sodium Level 138 mmol/L (136-145) Potassium Level 4.1 mmol/L (3.5-5.1) Chloride Level 99 mmol/L (98-107) Carbon Dioxide Level 28 mmol/L (21-32) Anion Gap 11 (6-14) Blood Urea Nitrogen 24 mg/dL (7-20) Creatinine 1.1 mg/dL (0.6-1.0) Estimated GFR (Cockcroft-Gault) 52.0 BUN/Creatinine Ratio 22 (6-20) Glucose Level 302 mg/dL (70-99) Calcium Level 9.4 mg/dL (8.5-10.1) Total Bilirubin 0.3 mg/dL (0.2-1.0) Aspartate Amino Transf (AST/SGOT) 23 U/L (15-37) Alanine Aminotransferase (ALT/SGPT) 33 U/L (14-59) Alkaline Phosphatase 119 U/L (46-116) Total Protein 7.3 g/dL (6.4-8.2) Albumin 3.4 g/dL (3.4-5.0) Albumin/Globulin Ratio 0.9 (1.0-1.7) Laboratory Tests Test 07/13/19 11:27 07/13/19 16:57 07/13/19 21:23 07/14/19 07:27 Glucose (Fingerstick) 297 mg/dL (70-99) 156 mg/dL (70-99) 281 mg/dL (70-99) 270 mg/dL (70-99) Test 07/14/19 08:20 White Blood Count 10.0 x10^3/uL (4.0-11.0) Red Blood Count 4.20 x10^6/uL (3.50-5.40) Hemoglobin 12.7 g/dL (12.0-15.5) Hematocrit 38.0 % (36.0-47.0) Mean Corpuscular Volume 91 fL (79-100) Mean Corpuscular Hemoglobin 30 pg (25-35) Mean Corpuscular Hemoglobin Concent 34 g/dL (31-37) Red Cell Distribution Width 14.7 % (11.5-14.5) Platelet Count 386 x10^3/uL (140-400) Neutrophils (%) (Auto) 57 % (31-73) Lymphocytes (%) (Auto) 32 % (24-48) Monocytes (%) (Auto) 6 % (0-9) Eosinophils (%) (Auto) 5 % (0-3) Basophils (%) (Auto) 1 % (0-3) Neutrophils # (Auto) 5.7 x10^3/uL (1.8-7.7) Lymphocytes # (Auto) 3.2 x10^3/uL (1.0-4.8) Monocytes # (Auto) 0.6 x10^3/uL (0.0-1.1) Eosinophils # (Auto) 0.4 x10^3/uL (0.0-0.7) Basophils # (Auto) 0.1 x10^3/uL (0.0-0.2) Sodium Level 138 mmol/L (136-145) Potassium Level 4.1 mmol/L (3.5-5.1) Chloride Level 99 mmol/L (98-107) Carbon Dioxide Level 28 mmol/L (21-32) Anion Gap 11 (6-14) Blood Urea Nitrogen 24 mg/dL (7-20) Creatinine 1.1 mg/dL (0.6-1.0) Estimated GFR (Cockcroft-Gault) 52.0 BUN/Creatinine Ratio 22 (6-20) Glucose Level 302 mg/dL (70-99) Calcium Level 9.4 mg/dL (8.5-10.1) Total Bilirubin 0.3 mg/dL (0.2-1.0) Aspartate Amino Transf (AST/SGOT) 23 U/L (15-37) Alanine Aminotransferase (ALT/SGPT) 33 U/L (14-59) Alkaline Phosphatase 119 U/L (46-116) Total Protein 7.3 g/dL (6.4-8.2) Albumin 3.4 g/dL (3.4-5.0) Albumin/Globulin Ratio 0.9 (1.0-1.7) Medications Active Scripts Medications Dose Route/Sig Max Daily Dose Days Date Category Dose Instructions Metformin Hcl 1,000 Mg Tablet 1,000 Mg PO BIDWMEALS 07/12/19 Reported Hydrochlorothiazide 25 Mg Tablet 25 Mg PO DAILY08 07/12/19 Reported Oxycodone Hcl 5 Mg Capsule 5 Mg PO TID 07/12/19 Reported Oxycodone Hcl 5 Mg Capsule 10 Mg PO DAILY08 PRN 07/12/19 Reported Levemir (Insulin Detemir) 100 Unit/1 Ml Vial 42 Unit SQ DAILYWBKFT 07/12/19 Reported Albuterol Sulfate Conc Neb Soln (Albuterol Sulfate) 2.5 Mg/0.5 Ml Vial.neb 1 Vial NEB Q4HRS 05/22/19 Rx Tessalon Perle (Benzonatate) 100 Mg Capsule 1 Cap PO TID 05/22/19 Rx Proair Hfa (Albuterol Sulfate) 8.5 Gm Hfa.aer.ad 1 Puff INH PRN Q6HRS PRN 05/22/19 Rx Azithromycin Tablet (Azithromycin) 250 Mg Tablet 1 Pkg PO UD 05/22/19 Rx Zkypvj-Gptvpawk-Gioh 50-325-40 (Butalb/Acetaminophen/Caffeine) 1 Each Tablet 1 Each PO Q6HRS PRN 03/15/19 Rx Prednisone 20 Mg Tablet 2 Tab PO DAILY 03/15/19 Rx Start this prescription tomrrow, 03/16/19 Keflex (Cephalexin) 500 Mg Capsule 2 Cap PO Q12HR 10/08/18 Rx Vitamin D3 (Cholecalciferol (Vitamin D3)) 5,000 Unit Tablet 1 Tab PO DAILY 08/21/18 Reported Gabapentin 300 Mg Capsule 600 Mg PO QID 08/21/18 Reported Glipizide 10 Mg Tablet 1 Tab PO BID 08/21/18 Reported Levemir (Insulin Detemir) 100 Unit/1 Ml Vial 42 Unit SQ HS 08/21/18 Reported Novolog Flexpen (Insulin Aspart) 100 Unit/1 Ml Insuln.pen 25 Unit SQ TIDWMEALS 08/21/18 Reported Zithromax (Azithromycin) 250 Mg Tablet 1 Pkg PO UD 08/06/18 Rx Take 2 tablets on day 1 and then 1 tablet each day for the next 4 days as directed Proair Hfa Inhaler (Albuterol Sulfate) 8.5 Gm Hfa.aer.ad 1 Puff INH PRN Q6HRS PRN 08/06/18 Rx Prednisone 20 Mg Tablet 2 Tab PO DAILY 08/06/18 Rx Start this prescription 08/07/18 Impression . 1. Progressive dyspnea secondary to acute exacerbation of chronic obstructive pulmonary disease. 2. Acute exacerbation of chronic obstructive pulmonary disease. 3. Tobacco dependence. 4. Morbid obesity. 5. Lactic acidosis. 6. Possible sepsis. 7. Type 2 diabetes. 8. Suspect obstructive sleep apnea. Plan . 1. Continue current empiric antibiotics. 2. Pt. request not to be on steroids 2/2 DM II 3. DVT prophylaxis. 4. accu-checks and TX. of DM per IM 5. The patient instructed on the importance of discontinuing tobacco use. 6. Add pulmicort/ mucomsyt in addition to mucinex. DUNIA NUNEZ MD Jul 14, 2019 10:51
[2019-07-14 11:27] VITALS: BP 137/76
--- NOTE | 2019-07-14 11:53 | PDOC ---
PROGRESS NOTES History of Present Illness History of Present Illness VTE Prophylaxis Ordered VTE Prophylaxis Devices: No VTE Pharmacological Prophylaxi: Yes Assessment/Plan Assessment/Plan IMPRESSION: 1. No evidence of focal pneumonia. BY CXR , SUSPECT EARLY PNEUMONIA CLINICALLY 2. Patchy bibasilar opacities, likely atelectasis. 3. SEPSIS 4. SEVERE MORBID OBESITY 5. LACTIC ACIDOSIS 6. DIABETES, uncontrolled, stop metformin 7. ACUTE COPD EXAC 8. metabolic syndrome ADMIT BLOOD CULT IV ANTIBIOTICS DOXY, ROCEPHIN DUONEBS DVT PROPHYLAXIS IV FLUID SUPPORT PULM CONSULT hold metformin due to lactic acidosis [employer] lantus dosing 27 MIN PT EXAM, CHART REVIEW, > 50% OF TIME SPENT WITH EXAM, CHART review, pt care coordination Vitals Vitals Vital Signs Date Time Temp Pulse Resp B/P (MAP) Pulse Ox O2 Delivery O2 Flow Rate FiO2 07/14/19 11:29 98 Room Air 07/14/19 11:27 98.9 96 18 137/76 (96) 98.9 Physical Exam General: Alert, Oriented X3, Cooperative, No acute distress Heart: Regular rate, No murmurs Lungs: Wheezing, Crackles Abdomen: Normal bowel sounds, Soft, No hepatosplenomegaly Extremities: No cyanosis Labs LABS PATIENT: JOSE WREN ACCT: [id number] LOC: [address] [place] [address] U: [id number] AGE/SX: 53/F ROOM: [facility] RE07/12/[address]: RIK REYNA III DO : 1965 BED: 1 DIS: STATUS: ADM IN TLOC: SPEC #: [id number] MARTIN: 07/12/19 STATUS: RES REQ #: [id number] RECD: 07/12/[address]: VENKAT RENE APRN SOURCE: BLOOD ENTR: 07/12/19-[address]: RUBENS,STAFF [facility]: UNKNOWN PCP NAME ORDERED: BCULT Procedure Result BLOOD CULTURE Preliminary NO GROWTH AFTER 1 DAY Laboratory Tests Test 07/13/19 16:57 07/13/19 21:23 07/14/19 07:27 07/14/19 08:20 Glucose (Fingerstick) 156 mg/dL (70-99) 281 mg/dL (70-99) 270 mg/dL (70-99) White Blood Count 10.0 x10^3/uL (4.0-11.0) Red Blood Count 4.20 x10^6/uL (3.50-5.40) Hemoglobin 12.7 g/dL (12.0-15.5) Hematocrit 38.0 % (36.0-47.0) Mean Corpuscular Volume 91 fL (79-100) Mean Corpuscular Hemoglobin 30 pg (25-35) Mean Corpuscular Hemoglobin Concent 34 g/dL (31-37) Red Cell Distribution Width 14.7 % (11.5-14.5) Platelet Count 386 x10^3/uL (140-400) Neutrophils (%) (Auto) 57 % (31-73) Lymphocytes (%) (Auto) 32 % (24-48) Monocytes (%) (Auto) 6 % (0-9) Eosinophils (%) (Auto) 5 % (0-3) Basophils (%) (Auto) 1 % (0-3) Neutrophils # (Auto) 5.7 x10^3/uL (1.8-7.7) Lymphocytes # (Auto) 3.2 x10^3/uL (1.0-4.8) Monocytes # (Auto) 0.6 x10^3/uL (0.0-1.1) Eosinophils # (Auto) 0.4 x10^3/uL (0.0-0.7) Basophils # (Auto) 0.1 x10^3/uL (0.0-0.2) Sodium Level 138 mmol/L (136-145) Potassium Level 4.1 mmol/L (3.5-5.1) Chloride Level 99 mmol/L (98-107) Carbon Dioxide Level 28 mmol/L (21-32) Anion Gap 11 (6-14) Blood Urea Nitrogen 24 mg/dL (7-20) Creatinine 1.1 mg/dL (0.6-1.0) Estimated GFR (Cockcroft-Gault) 52.0 BUN/Creatinine Ratio 22 (6-20) Glucose Level 302 mg/dL (70-99) Calcium Level 9.4 mg/dL (8.5-10.1) Total Bilirubin 0.3 mg/dL (0.2-1.0) Aspartate Amino Transf (AST/SGOT) 23 U/L (15-37) Alanine Aminotransferase (ALT/SGPT) 33 U/L (14-59) Alkaline Phosphatase 119 U/L (46-116) Total Protein 7.3 g/dL (6.4-8.2) Albumin 3.4 g/dL (3.4-5.0) Albumin/Globulin Ratio 0.9 (1.0-1.7) Test 07/14/19 11:42 Glucose (Fingerstick) 261 mg/dL (70-99) Assessment and Plan Assessmemt and Plan Problems Medical Problems: (1) Pneumonia Status: Acute Comment Review of Relevant I have reviewed the following items mercedes (where applicable) has been applied. Labs Laboratory Tests Test 07/12/19 16:15 07/12/19 16:50 07/12/19 17:25 07/12/19 18:00 Urine Collection Type Unknown Urine Color Yellow Urine Clarity Clear Urine pH 5.0 Urine Specific [place] 1.020 Urine Protein Negative mg/dL (NEG-TRACE) Urine Glucose (UA) 100 mg/dL (NEG) Urine Ketones (Stick) Trace mg/dL (NEG) Urine Blood Negative (NEG) Urine Nitrite Negative (NEG) Urine Bilirubin Negative (NEG) Urine Urobilinogen Dipstick 0.2 mg/dL (0.2 mg/dL) Urine Leukocyte Esterase Negative (NEG) Urine RBC Occ /HPF (0-2) Urine WBC 1-4 /HPF (0-4) Urine Squamous Epithelial Cells Mod /LPF Urine Bacteria Few /HPF (0-FEW) Urine Mucus Mod /LPF White Blood Count 11.8 x10^3/uL (4.0-11.0) Red Blood Count 4.35 x10^6/uL (3.50-5.40) Hemoglobin 13.3 g/dL (12.0-15.5) Hematocrit 39.4 % (36.0-47.0) Mean Corpuscular Volume 91 fL (79-100) Mean Corpuscular Hemoglobin 31 pg (25-35) Mean Corpuscular Hemoglobin Concent 34 g/dL (31-37) Red Cell Distribution Width 14.2 % (11.5-14.5) Platelet Count 414 x10^3/uL (140-400) Neutrophils (%) (Auto) 66 % (31-73) Lymphocytes (%) (Auto) 25 % (24-48) Monocytes (%) (Auto) 5 % (0-9) Eosinophils (%) (Auto) 3 % (0-3) Basophils (%) (Auto) 1 % (0-3) Neutrophils # (Auto) 7.8 x10^3/uL (1.8-7.7) Lymphocytes # (Auto) 3.0 x10^3/uL (1.0-4.8) Monocytes # (Auto) 0.6 x10^3/uL (0.0-1.1) Eosinophils # (Auto) 0.3 x10^3/uL (0.0-0.7) Basophils # (Auto) 0.1 x10^3/uL (0.0-0.2) Sodium Level 141 mmol/L (136-145) Potassium Level 3.6 mmol/L (3.5-5.1) Chloride Level 100 mmol/L (98-107) Carbon Dioxide Level 27 mmol/L (21-32) Anion Gap 14 (6-14) Blood Urea Nitrogen 27 mg/dL (7-20) Creatinine 1.0 mg/dL (0.6-1.0) Estimated GFR (Cockcroft-Gault) 58.0 BUN/Creatinine Ratio 27 (6-20) Glucose Level 248 mg/dL (70-99) Calcium Level 10.6 mg/dL (8.5-10.1) Total Bilirubin 0.2 mg/dL (0.2-1.0) Aspartate Amino Transf (AST/SGOT) 15 U/L (15-37) Alanine Aminotransferase (ALT/SGPT) 30 U/L (14-59) Alkaline Phosphatase 129 U/L (46-116) Troponin I Quantitative < 0.017 ng/mL (0.000-0.055) Total Protein 7.4 g/dL (6.4-8.2) Albumin 3.4 g/dL (3.4-5.0) Albumin/Globulin Ratio 0.9 (1.0-1.7) Procalcitonin < 0.10 ng/mL (0.00-0.10) Influenza Type A Antigen Negative (NEGATIVE) Influenza Type B Antigen Negative (NEGATIVE) Lactic Acid Level 4.5 mmol/L (0.4-2.0) Test 07/12/19 21:09 07/12/19 22:10 07/13/19 01:40 07/13/19 03:12 Glucose (Fingerstick) 319 mg/dL (70-99) 289 mg/dL (70-99) Lactic Acid Level 3.4 mmol/L (0.4-2.0) 3.8 mmol/L (0.4-2.0) Test 07/13/19 07:34 07/13/19 11:27 07/13/19 16:57 07/13/19 21:23 Glucose (Fingerstick) 276 mg/dL (70-99) 297 mg/dL (70-99) 156 mg/dL (70-99) 281 mg/dL (70-99) Test 07/14/19 07:27 07/14/19 08:20 07/14/19 11:42 Glucose (Fingerstick) 270 mg/dL (70-99) 261 mg/dL (70-99) White Blood Count 10.0 x10^3/uL (4.0-11.0) Red Blood Count 4.20 x10^6/uL (3.50-5.40) Hemoglobin 12.7 g/dL (12.0-15.5) Hematocrit 38.0 % (36.0-47.0) Mean Corpuscular Volume 91 fL (79-100) Mean Corpuscular Hemoglobin 30 pg (25-35) Mean Corpuscular Hemoglobin Concent 34 g/dL (31-37) Red Cell Distribution Width 14.7 % (11.5-14.5) Platelet Count 386 x10^3/uL (140-400) Neutrophils (%) (Auto) 57 % (31-73) Lymphocytes (%) (Auto) 32 % (24-48) Monocytes (%) (Auto) 6 % (0-9) Eosinophils (%) (Auto) 5 % (0-3) Basophils (%) (Auto) 1 % (0-3) Neutrophils # (Auto) 5.7 x10^3/uL (1.8-7.7) Lymphocytes # (Auto) 3.2 x10^3/uL (1.0-4.8) Monocytes # (Auto) 0.6 x10^3/uL (0.0-1.1) Eosinophils # (Auto) 0.4 x10^3/uL (0.0-0.7) Basophils # (Auto) 0.1 x10^3/uL (0.0-0.2) Sodium Level 138 mmol/L (136-145) Potassium Level 4.1 mmol/L (3.5-5.1) Chloride Level 99 mmol/L (98-107) Carbon Dioxide Level 28 mmol/L (21-32) Anion Gap 11 (6-14) Blood Urea Nitrogen 24 mg/dL (7-20) Creatinine 1.1 mg/dL (0.6-1.0) Estimated GFR (Cockcroft-Gault) 52.0 BUN/Creatinine Ratio 22 (6-20) Glucose Level 302 mg/dL (70-99) Calcium Level 9.4 mg/dL (8.5-10.1) Total Bilirubin 0.3 mg/dL (0.2-1.0) Aspartate Amino Transf (AST/SGOT) 23 U/L (15-37) Alanine Aminotransferase (ALT/SGPT) 33 U/L (14-59) Alkaline Phosphatase 119 U/L (46-116) Total Protein 7.3 g/dL (6.4-8.2) Albumin 3.4 g/dL (3.4-5.0) Albumin/Globulin Ratio 0.9 (1.0-1.7) Laboratory Tests Test 07/13/19 16:57 07/13/19 21:23 07/14/19 07:27 07/14/19 08:20 Glucose (Fingerstick) 156 mg/dL (70-99) 281 mg/dL (70-99) 270 mg/dL (70-99) White Blood Count 10.0 x10^3/uL (4.0-11.0) Red Blood Count 4.20 x10^6/uL (3.50-5.40) Hemoglobin 12.7 g/dL (12.0-15.5) Hematocrit 38.0 % (36.0-47.0) Mean Corpuscular Volume 91 fL (79-100) Mean Corpuscular Hemoglobin 30 pg (25-35) Mean Corpuscular Hemoglobin Concent 34 g/dL (31-37) Red Cell Distribution Width 14.7 % (11.5-14.5) Platelet Count 386 x10^3/uL (140-400) Neutrophils (%) (Auto) 57 % (31-73) Lymphocytes (%) (Auto) 32 % (24-48) Monocytes (%) (Auto) 6 % (0-9) Eosinophils (%) (Auto) 5 % (0-3) Basophils (%) (Auto) 1 % (0-3) Neutrophils # (Auto) 5.7 x10^3/uL (1.8-7.7) Lymphocytes # (Auto) 3.2 x10^3/uL (1.0-4.8) Monocytes # (Auto) 0.6 x10^3/uL (0.0-1.1) Eosinophils # (Auto) 0.4 x10^3/uL (0.0-0.7) Basophils # (Auto) 0.1 x10^3/uL (0.0-0.2) Sodium Level 138 mmol/L (136-145) Potassium Level 4.1 mmol/L (3.5-5.1) Chloride Level 99 mmol/L (98-107) Carbon Dioxide Level 28 mmol/L (21-32) Anion Gap 11 (6-14) Blood Urea Nitrogen 24 mg/dL (7-20) Creatinine 1.1 mg/dL (0.6-1.0) Estimated GFR (Cockcroft-Gault) 52.0 BUN/Creatinine Ratio 22 (6-20) Glucose Level 302 mg/dL (70-99) Calcium Level 9.4 mg/dL (8.5-10.1) Total Bilirubin 0.3 mg/dL (0.2-1.0) Aspartate Amino Transf (AST/SGOT) 23 U/L (15-37) Alanine Aminotransferase (ALT/SGPT) 33 U/L (14-59) Alkaline Phosphatase 119 U/L (46-116) Total Protein 7.3 g/dL (6.4-8.2) Albumin 3.4 g/dL (3.4-5.0) Albumin/Globulin Ratio 0.9 (1.0-1.7) Test 07/14/19 11:42 Glucose (Fingerstick) 261 mg/dL (70-99) Microbiology 07/12/19 Blood Culture - Preliminary, Resulted NO GROWTH AFTER 1 DAY Medications Current Medications Albuterol Sulfate (Ventolin Neb Soln) 2.5 mg 1X ONCE NEB Last administered on 07/12/19at 16:42; Start 07/12/19 at 16:30; Stop 07/12/19 at 16:33; Status DC Ceftriaxone Sodium (Rocephin) 1 gm 1X ONCE IVP Last administered on 07/12/19 19:15; Start 07/12/19 at 18:00; Stop 07/12/19 at 18:03; Status DC Doxycycline Hyclate 100 mg/ Dextrose 100 ml @ 50 mls/hr 1X ONCE IV Last administered on 07/12/19 18:29; Start 07/12/19 at 18:00; Stop 07/12/19 at 19:59; Status DC Sodium Chloride 1,000 ml @ 1,000 mls/hr 1X ONCE IV Last administered on 07/12/19 19:17; Start 07/12/19 at 18:30; Stop 07/12/19 at 19:29; Status DC Fentanyl Citrate (Fentanyl 2ml Vial) 50 mcg 1X ONCE IVP Last administered on 07/12/19 19:15; Start 07/12/19 at 18:30; Stop 07/12/19 at 18:31; Status DC Ondansetron HCl (Zofran) 4 mg 1X ONCE IV Last administered on 07/12/19 19:27; Start 07/12/19 at 19:30; Stop 07/12/19 at 19:31; Status DC Sodium Chloride 1,000 ml @ 1,000 mls/hr 1X ONCE IV Last administered on 07/12/19 20:40; Start 07/12/19 at 19:45; Stop 07/12/19 at 20:44; Status DC Ondansetron HCl (Zofran) 4 mg PRN Q8HRS PRN IV NAUSEA/VOMITING; Start 07/12/19 at 20:00; Stop 07/13/19 at 19:59; Status DC Fentanyl Citrate (Fentanyl 2ml Vial) 50 mcg PRN Q1HR PRN IV PAIN Last administered on 07/12/19 20:46; Start 07/12/19 at 20:00; Stop 07/13/19 at 19:59; Status DC Acetaminophen (Tylenol) 650 mg PRN Q4HRS PRN PO FEVER; Start 07/12/19 at 20:00; Stop 07/13/19 at 19:59; Status DC Albuterol/ Ipratropium (Duoneb) 3 ml RTQID NEB Last administered on 07/13/19 19:33; Start 07/12/19 at 20:00; Stop 07/13/19 at 19:59; Status DC Benzonatate (Tessalon Perle) 100 mg TID PO Last administered on 07/14/19 08:41; Start 07/12/19 at 22:00 Gabapentin (Neurontin) 600 mg QID PO Last administered on 07/14/19 08:41; Start 07/12/19 at 22:00 Hydrochlorothiazide (Hydrodiuril) 25 mg DAILY08 PO Last administered on 07/14/19 08:40; Start 07/13/19 at 08:00 Vitamin D (Vitamin D3) 5,000 unit DAILY PO Last administered on 07/14/19 08:41; Start 07/13/19 at 09:00 Insulin Human Lispro (HumaLOG) 25 units TIDWMEALS SQ Last administered on 07/14/19 08:53; Start 07/13/19 at 08:00 Insulin Glargine (Lantus Syringe) 42 unit DAILYWBKFT SQ Last administered on 07/14/19 08:55; Start 07/13/19 at 08:00 Insulin Glargine (Lantus Syringe) 42 unit QHS SQ Last administered on 07/13/19 20:15; Start 07/13/19 at 21:00 Metformin HCl (Glucophage) 1,000 mg BIDWMEALS PO Last administered on 07/13/19 08:20; Start 07/13/19 at 08:00; Stop 07/13/19 at 11:46; Status DC Oxycodone HCl (Roxicodone) 5 mg TID PO Last administered on 07/14/19 08:40; Start 07/12/19 at 22:00 Oxycodone HCl (Roxicodone) 10 mg PRN DAILY PRN PO BREAKTHRU PAIN Last administered on 07/14/19 02:51; Start 07/12/19 at 22:00 Insulin Glargine (Lantus Syringe) 42 unit 1X ONCE SQ Last administered on 07/12/19 22:44; Start 07/12/19 at 23:00; Stop 07/12/19 at 23:01; Status DC Albuterol Sulfate (Ventolin Neb Soln) 2.5 mg PRN Q4HRS PRN NEB SHORTNESS OF BREATH Last administered on 07/14/19 11:28; Start 07/13/19 at 04:00 Throat Lozenges (Cepacol Sore Throat Lozenge) 1 ever PRN Q2HRS PRN PO SORE THROAT Last administered on 07/14/19 08:40; Start 07/13/19 at 04:00 Ceftriaxone Sodium (Rocephin) 2 gm Q24H IVP Last administered on 07/13/19 18:09; Start 07/13/19 at 18:00 Doxycycline Hyclate (Vibra-Tab) 100 mg BID PO Last administered on 07/14/19 08:40; Start 07/13/19 at 12:30 Guaifenesin/ Codeine Phosphate (Robitussin Ac) 10 ml PRN Q6HRS PRN PO COUGH Last administered on 07/14/19 08:41; Start 07/13/19 at 12:30 Lactobacillus Rhamnosus (Culturelle) 1 cap BID PO Last administered on 07/14/19 08:40; Start 07/13/19 at 21:00 Nicotine (Nicoderm Cq 14mg) 1 patch DAILY TD Last administered on 07/14/19 08:42; Start 07/13/19 at 18:30 Budesonide (Pulmicort) 0.5 mg RTBID NEB ; Start 07/14/19 at 20:00 Acetylcysteine (Mucomyst 20% Resp Treatment) 600 mg BID NEB ; Start 07/14/19 at 21:00 Active Scripts Active Albuterol Sulfate Conc Neb Soln (Albuterol Sulfate) 2.5 Mg/0.5 Ml Vial.neb 1 Vial NEB Q4HRS Tessalon Perle (Benzonatate) 100 Mg Capsule 1 Cap PO TID Proair Hfa (Albuterol Sulfate) 8.5 Gm Hfa.aer.ad 1 Puff INH PRN Q6HRS PRN Azithromycin Tablet (Azithromycin) 250 Mg Tablet 1 Pkg PO UD Feubwz-Bkzlsgek-Yqek 50-325-40 (Butalb/Acetaminophen/Caffeine) 1 Each Tablet 1 Each PO Q6HRS PRN Prednisone 20 Mg Tablet 2 Tab PO DAILY Start this prescription tomrrow, 03/16/19 Keflex (Cephalexin) 500 Mg Capsule 2 Cap PO Q12HR Zithromax (Azithromycin) 250 Mg Tablet 1 Pkg PO UD Take 2 tablets on day 1 and then 1 tablet each day for the next 4 days as directed Proair Hfa Inhaler (Albuterol Sulfate) 8.5 Gm Hfa.aer.ad 1 Puff INH PRN Q6HRS PRN Prednisone 20 Mg Tablet 2 Tab PO DAILY Start this prescription 08/07/18 Reported Metformin Hcl 1,000 Mg Tablet 1,000 Mg PO BIDWMEALS Hydrochlorothiazide 25 Mg Tablet 25 Mg PO DAILY08 Oxycodone Hcl 5 Mg Capsule 5 Mg PO TID Oxycodone Hcl 5 Mg Capsule 10 Mg PO DAILY08 PRN Levemir (Insulin Detemir) 100 Unit/1 Ml Vial 42 Unit SQ DAILYWBKFT Vitamin D3 (Cholecalciferol (Vitamin D3)) 5,000 Unit Tablet 1 Tab PO DAILY Gabapentin 300 Mg Capsule 600 Mg PO QID Glipizide 10 Mg Tablet 1 Tab PO BID Levemir (Insulin Detemir) 100 Unit/1 Ml Vial 42 Unit SQ HS Novolog Flexpen (Insulin Aspart) 100 Unit/1 Ml Insuln.pen 25 Unit SQ TIDWMEALS Vitals/I & O Vital Sign - Last 24 Hours 07/13/19 07/13/19 07/13/19 07/13/19 15:05 16:36 17:48 18:50 Temp 98.1 98.1 Pulse 96 Resp 18 B/P (MAP) 138/76 (96) Pulse Ox 97 97 97 97 O2 Delivery Room Air Room Air Room Air Room Air 07/13/19 07/13/19 07/13/19 07/13/19 19:10 19:30 19:33 21:10 Temp 98.4 98.4 Pulse 90 Resp 18 B/P (MAP) 146/80 (102) Pulse Ox 95 97 O2 Delivery Room Air Room Air Room Air Room Air 07/13/19 07/14/19 07/14/19 07/14/19 23:10 03:15 07:15 07:42 Temp 98.1 98.0 98.3 98.1 98.0 98.3 Pulse 99 95 93 Resp 19 19 18 B/P (MAP) 120/58 (78) 127/74 (91) 132/77 (95) Pulse Ox 93 94 97 96 O2 Delivery Room Air Room Air Room Air Room Air 07/14/19 07/14/19 07/14/1919 08:00 08:40 09:45 11:27 Temp 98.9 98.9 Pulse 96 Resp 18 B/P (MAP) 137/76 (96) Pulse Ox 96 96 99 O2 Delivery Room Air Room Air Room Air Room Air 07/14/19 11:29 Pulse Ox 98 O2 Delivery Room Air Intake and Output 07/13/19 07/13/19 07/14/19 15:00 23:00 07:00 Intake Total 800 ml 700 ml 690 ml Balance 800 ml 700 ml 690 ml SHERIF LUGO MD Jul 14, 2019 11:53
[2019-07-14 15:32] VITALS: BP 144/89
[2019-07-14] MEDS ORDERED: metFORMIN 500 MG TABLET PO SCH (17:00)
[2019-07-14] MEDS: cefTRIAXone IV Push 2 GM VIAL. IVP SCH (17:04)
[2019-07-14 19:15] VITALS: BP 128/64
[2019-07-14] MEDS ORDERED: ACETYLCYSTEINE 20% for RESP TX 600 MG/3 ML. NEB SCH (21:00)
[2019-07-14] MEDS: BUDESONIDE 0.5 MG/2 ML NEBU. NEB SCH (21:04)
[2019-07-14 23:20] VITALS: BP 107/68
[2019-07-15 03:20] VITALS: BP 121/56
[2019-07-15 07:00] VITALS: BP 158/89
[2019-07-15] MEDS ORDERED: INSULIN GLARGINE SYRINGE. SQ SCH (08:00)
[2019-07-15] MEDS: ALBUTEROL SULFATE 2.5 MG/3 ML NEBU. NEB PRN ×3 (08:02→15:44)
[2019-07-15] MEDS: BUDESONIDE 0.5 MG/2 ML NEBU. NEB SCH (08:02)
[2019-07-15] MEDS: oxyCODONE IR 5 MG TABLET PO SCH ×2 (09:00→13:37)
--- NOTE | 2019-07-15 09:15 | PDOC ---
PULMONARY PROGRESS NOTES Subjective FEELS BETTER LESS SOA AND COUGH Vitals Vital Signs Date Time Temp Pulse Resp B/P (MAP) Pulse Ox O2 Delivery O2 Flow Rate FiO2 07/15/19 08:03 96 Room Air 07/15/19 07:00 98.3 89 19 158/89 (112) 98.3 ROS: No Nausea, No Chest Pain, No Abdominal Pain, No Increase Cough General: Alert, Oriented X4 Lungs: Wheezing, Crackles Cardiovascular: S1, S2 Abdomen: Soft, Non-tender Neuro Exam: Alert, Oriented Extremities: No Edema Skin: Warm Labs Laboratory Tests Test 07/13/19 11:27 07/13/19 16:57 07/13/19 21:23 07/14/19 07:27 Glucose (Fingerstick) 297 mg/dL (70-99) 156 mg/dL (70-99) 281 mg/dL (70-99) 270 mg/dL (70-99) Test 07/14/19 08:20 07/14/19 11:42 07/14/19 16:31 07/14/19 20:28 White Blood Count 10.0 x10^3/uL (4.0-11.0) Red Blood Count 4.20 x10^6/uL (3.50-5.40) Hemoglobin 12.7 g/dL (12.0-15.5) Hematocrit 38.0 % (36.0-47.0) Mean Corpuscular Volume 91 fL (79-100) Mean Corpuscular Hemoglobin 30 pg (25-35) Mean Corpuscular Hemoglobin Concent 34 g/dL (31-37) Red Cell Distribution Width 14.7 % (11.5-14.5) Platelet Count 386 x10^3/uL (140-400) Neutrophils (%) (Auto) 57 % (31-73) Lymphocytes (%) (Auto) 32 % (24-48) Monocytes (%) (Auto) 6 % (0-9) Eosinophils (%) (Auto) 5 % (0-3) Basophils (%) (Auto) 1 % (0-3) Neutrophils # (Auto) 5.7 x10^3/uL (1.8-7.7) Lymphocytes # (Auto) 3.2 x10^3/uL (1.0-4.8) Monocytes # (Auto) 0.6 x10^3/uL (0.0-1.1) Eosinophils # (Auto) 0.4 x10^3/uL (0.0-0.7) Basophils # (Auto) 0.1 x10^3/uL (0.0-0.2) Sodium Level 138 mmol/L (136-145) Potassium Level 4.1 mmol/L (3.5-5.1) Chloride Level 99 mmol/L (98-107) Carbon Dioxide Level 28 mmol/L (21-32) Anion Gap 11 (6-14) Blood Urea Nitrogen 24 mg/dL (7-20) Creatinine 1.1 mg/dL (0.6-1.0) Estimated GFR (Cockcroft-Gault) 52.0 BUN/Creatinine Ratio 22 (6-20) Glucose Level 302 mg/dL (70-99) Calcium Level 9.4 mg/dL (8.5-10.1) Total Bilirubin 0.3 mg/dL (0.2-1.0) Aspartate Amino Transf (AST/SGOT) 23 U/L (15-37) Alanine Aminotransferase (ALT/SGPT) 33 U/L (14-59) Alkaline Phosphatase 119 U/L (46-116) Total Protein 7.3 g/dL (6.4-8.2) Albumin 3.4 g/dL (3.4-5.0) Albumin/Globulin Ratio 0.9 (1.0-1.7) Glucose (Fingerstick) 261 mg/dL (70-99) 236 mg/dL (70-99) 244 mg/dL (70-99) Test 07/15/19 07:34 Glucose (Fingerstick) 248 mg/dL (70-99) Laboratory Tests Test 07/14/19 11:42 07/14/19 16:31 07/14/19 20:28 07/15/19 07:34 Glucose (Fingerstick) 261 mg/dL (70-99) 236 mg/dL (70-99) 244 mg/dL (70-99) 248 mg/dL (70-99) Medications Active Scripts Medications Dose Route/Sig Max Daily Dose Days Date Category Dose Instructions Metformin Hcl 1,000 Mg Tablet 1,000 Mg PO BIDWMEALS 07/12/19 Reported Hydrochlorothiazide 25 Mg Tablet 25 Mg PO DAILY08 07/12/19 Reported Oxycodone Hcl 5 Mg Capsule 5 Mg PO TID 07/12/19 Reported Oxycodone Hcl 5 Mg Capsule 10 Mg PO DAILY08 PRN 07/12/19 Reported Levemir (Insulin Detemir) 100 Unit/1 Ml Vial 42 Unit SQ DAILYWBKFT 07/12/19 Reported Albuterol Sulfate Conc Neb Soln (Albuterol Sulfate) 2.5 Mg/0.5 Ml Vial.neb 1 Vial NEB Q4HRS 05/22/19 Rx Tessalon Perle (Benzonatate) 100 Mg Capsule 1 Cap PO TID 05/22/19 Rx Proair Hfa (Albuterol Sulfate) 8.5 Gm Hfa.aer.ad 1 Puff INH PRN Q6HRS PRN 05/22/19 Rx Azithromycin Tablet (Azithromycin) 250 Mg Tablet 1 Pkg PO UD 05/22/19 Rx Xoyoxh-Zpmeklut-Spyf 50-325-40 (Butalb/Acetaminophen/Caffeine) 1 Each Tablet 1 Each PO Q6HRS PRN 03/15/19 Rx Prednisone 20 Mg Tablet 2 Tab PO DAILY 03/15/19 Rx Start this prescription tomrrow, 03/16/19 Keflex (Cephalexin) 500 Mg Capsule 2 Cap PO Q12HR 10/08/18 Rx Vitamin D3 (Cholecalciferol (Vitamin D3)) 5,000 Unit Tablet 1 Tab PO DAILY 08/21/18 Reported Gabapentin 300 Mg Capsule 600 Mg PO QID 08/21/18 Reported Glipizide 10 Mg Tablet 1 Tab PO BID 08/21/18 Reported Levemir (Insulin Detemir) 100 Unit/1 Ml Vial 42 Unit SQ HS 08/21/18 Reported Novolog Flexpen (Insulin Aspart) 100 Unit/1 Ml Insuln.pen 25 Unit SQ TIDWMEALS 08/21/18 Reported Zithromax (Azithromycin) 250 Mg Tablet 1 Pkg PO UD 08/06/18 Rx Take 2 tablets on day 1 and then 1 tablet each day for the next 4 days as directed Proair Hfa Inhaler (Albuterol Sulfate) 8.5 Gm Hfa.aer.ad 1 Puff INH PRN Q6HRS PRN 08/06/18 Rx Prednisone 20 Mg Tablet 2 Tab PO DAILY 08/06/18 Rx Start this prescription 08/07/18 Impression . 1. Progressive dyspnea secondary to acute exacerbation of chronic obstructive pulmonary disease. 2. Acute exacerbation of chronic obstructive pulmonary disease. 3. Tobacco dependence. 4. Morbid obesity. 5. Lactic acidosis. 6. Possible sepsis. 7. Type 2 diabetes. 8. Suspect obstructive sleep apnea. Plan . D/W DR LUGO OK TO D/C DUNIA NUNEZ MD Jul 15, 2019 09:15
[2019-07-15] MEDS: NICOTINE 14MG PATCH. TD SCH (09:19)
[2019-07-15] MEDS: GABAPENTIN 300 MG CAPSULE. PO SCH ×2 (09:19→13:37)
[2019-07-15] MEDS: DOXYCYCLINE HYCLATE 100 MG TABLET PO SCH (09:19)
[2019-07-15] MEDS: hydroCHLOROthiazide 25 MG TABLET PO SCH (09:19)
[2019-07-15] MEDS: BENZONATATE 100 MG CAPSULE. PO SCH ×2 (09:20→13:40)
[2019-07-15] MEDS: LACTOBACILLUS RHAMNOSUS GG 1 CAPSULE. PO SCH (09:20)
[2019-07-15] MEDS: CHOLECALCIFEROL (VITAMIN D3) 5,000 UNIT CAPSULE PO SCH (09:20)
[2019-07-15] MEDS: INSULIN LISPRO 300 UNITS/3 ML VIAL. SQ SCH ×2 (09:29→12:29)
[2019-07-15] MEDS: oxyCODONE IR 5 MG TABLET PO PRN (09:30)
--- NOTE | 2019-07-15 10:40 | PDOC ---
PROGRESS NOTES History of Present Illness History of Present Illness VTE Prophylaxis Ordered VTE Prophylaxis Devices: No VTE Pharmacological Prophylaxi: Yes discharge dx Assessment/Plan IMPRESSION: 1. No evidence of focal pneumonia. BY CXR , SUSPECT EARLY PNEUMONIA CLINICALLY 2. Patchy bibasilar opacities, likely atelectasis. 3. SEPSIS 4. SEVERE MORBID OBESITY 5. LACTIC ACIDOSIS 6. DIABETES, uncontrolled, stop metformin 7. ACUTE COPD EXAC 8. metabolic syndrome ADMIT BLOOD CULT IV ANTIBIOTICS DOXY, ROCEPHIN DUONEBS DVT PROPHYLAXIS IV FLUID SUPPORT PULM CONSULT reviewed d/c metformin due to lactic acidosis [employer] lantus dosing, needs ada diet at home, weight loss 33 MIN PT EXAM, CHART REVIEW d/c planning , > 50% OF TIME SPENT WITH EXAM, CHART review, pt care coordination Vitals Vitals Vital Signs Date Time Temp Pulse Resp B/P (MAP) Pulse Ox O2 Delivery O2 Flow Rate FiO2 07/15/19 09:30 96 Room Air 07/15/19 07:00 98.3 89 19 158/89 (112) 98.3 Physical Exam General: Alert, Oriented X3, Cooperative, No acute distress Heart: Regular rate, No murmurs Lungs: Wheezing, Crackles Abdomen: Normal bowel sounds, Soft, No hepatosplenomegaly Extremities: No cyanosis Labs LABS Laboratory Tests Test 07/14/19 11:42 07/14/19 16:31 07/14/19 20:28 07/15/19 07:34 Glucose (Fingerstick) 261 mg/dL (70-99) 236 mg/dL (70-99) 244 mg/dL (70-99) 248 mg/dL (70-99) Assessment and Plan Assessmemt and Plan Problems Medical Problems: (1) Pneumonia Status: Acute Comment Review of Relevant I have reviewed the following items mercedes (where applicable) has been applied. Labs Laboratory Tests Test 07/13/19 11:27 07/13/19 16:57 07/13/19 21:23 07/14/19 07:27 Glucose (Fingerstick) 297 mg/dL (70-99) 156 mg/dL (70-99) 281 mg/dL (70-99) 270 mg/dL (70-99) Test 07/14/19 08:20 07/14/19 11:42 07/14/19 16:31 07/14/19 20:28 White Blood Count 10.0 x10^3/uL (4.0-11.0) Red Blood Count 4.20 x10^6/uL (3.50-5.40) Hemoglobin 12.7 g/dL (12.0-15.5) Hematocrit 38.0 % (36.0-47.0) Mean Corpuscular Volume 91 fL (79-100) Mean Corpuscular Hemoglobin 30 pg (25-35) Mean Corpuscular Hemoglobin Concent 34 g/dL (31-37) Red Cell Distribution Width 14.7 % (11.5-14.5) Platelet Count 386 x10^3/uL (140-400) Neutrophils (%) (Auto) 57 % (31-73) Lymphocytes (%) (Auto) 32 % (24-48) Monocytes (%) (Auto) 6 % (0-9) Eosinophils (%) (Auto) 5 % (0-3) Basophils (%) (Auto) 1 % (0-3) Neutrophils # (Auto) 5.7 x10^3/uL (1.8-7.7) Lymphocytes # (Auto) 3.2 x10^3/uL (1.0-4.8) Monocytes # (Auto) 0.6 x10^3/uL (0.0-1.1) Eosinophils # (Auto) 0.4 x10^3/uL (0.0-0.7) Basophils # (Auto) 0.1 x10^3/uL (0.0-0.2) Sodium Level 138 mmol/L (136-145) Potassium Level 4.1 mmol/L (3.5-5.1) Chloride Level 99 mmol/L (98-107) Carbon Dioxide Level 28 mmol/L (21-32) Anion Gap 11 (6-14) Blood Urea Nitrogen 24 mg/dL (7-20) Creatinine 1.1 mg/dL (0.6-1.0) Estimated GFR (Cockcroft-Gault) 52.0 BUN/Creatinine Ratio 22 (6-20) Glucose Level 302 mg/dL (70-99) Calcium Level 9.4 mg/dL (8.5-10.1) Total Bilirubin 0.3 mg/dL (0.2-1.0) Aspartate Amino Transf (AST/SGOT) 23 U/L (15-37) Alanine Aminotransferase (ALT/SGPT) 33 U/L (14-59) Alkaline Phosphatase 119 U/L (46-116) Total Protein 7.3 g/dL (6.4-8.2) Albumin 3.4 g/dL (3.4-5.0) Albumin/Globulin Ratio 0.9 (1.0-1.7) Glucose (Fingerstick) 261 mg/dL (70-99) 236 mg/dL (70-99) 244 mg/dL (70-99) Test 07/15/19 07:34 Glucose (Fingerstick) 248 mg/dL (70-99) Laboratory Tests Test 07/14/19 11:42 07/14/19 16:31 07/14/19 20:28 07/15/19 07:34 Glucose (Fingerstick) 261 mg/dL (70-99) 236 mg/dL (70-99) 244 mg/dL (70-99) 248 mg/dL (70-99) Microbiology 07/12/19 Blood Culture - Preliminary, Resulted NO GROWTH AFTER 2 DAYS Medications Current Medications Albuterol Sulfate (Ventolin Neb Soln) 2.5 mg 1X ONCE NEB Last administered on 07/12/19at 16:42; Start 07/12/19 at 16:30; Stop 07/12/19 at 16:33; Status DC Ceftriaxone Sodium (Rocephin) 1 gm 1X ONCE IVP Last administered on 07/12/19at 19:15; Start 07/12/19 at 18:00; Stop 07/12/19 at 18:03; Status DC Doxycycline Hyclate 100 mg/ Dextrose 100 ml @ 50 mls/hr 1X ONCE IV Last administered on 07/12/19 18:29; Start 07/12/19 at 18:00; Stop 07/12/19 at 19:59; Status DC Sodium Chloride 1,000 ml @ 1,000 mls/hr 1X ONCE IV Last administered on 07/12/19at 19:17; Start 07/12/19 at 18:30; Stop 07/12/19 at 19:29; Status DC Fentanyl Citrate (Fentanyl 2ml Vial) 50 mcg 1X ONCE IVP Last administered on 07/12/19 19:15; Start 07/12/19 at 18:30; Stop 07/12/19 at 18:31; Status DC Ondansetron HCl (Zofran) 4 mg 1X ONCE IV Last administered on 07/12/19 19:27; Start 07/12/19 at 19:30; Stop 07/12/19 at 19:31; Status DC Sodium Chloride 1,000 ml @ 1,000 mls/hr 1X ONCE IV Last administered on 07/12/19 20:40; Start 07/12/19 at 19:45; Stop 07/12/19 at 20:44; Status DC Ondansetron HCl (Zofran) 4 mg PRN Q8HRS PRN IV NAUSEA/VOMITING; Start 07/12/19 at 20:00; Stop 07/13/19 at 19:59; Status DC Fentanyl Citrate (Fentanyl 2ml Vial) 50 mcg PRN Q1HR PRN IV PAIN Last administered on 07/12/19 20:46; Start 07/12/19 at 20:00; Stop 07/13/19 at 19:59; Status DC Acetaminophen (Tylenol) 650 mg PRN Q4HRS PRN PO FEVER; Start 07/12/19 at 20:00; Stop 07/13/19 at 19:59; Status DC Albuterol/ Ipratropium (Duoneb) 3 ml RTQID NEB Last administered on 07/13/19 19:33; Start 07/12/19 at 20:00; Stop 07/13/19 at 19:59; Status DC Benzonatate (Tessalon Perle) 100 mg TID PO Last administered on 07/15/19 09:20; Start 07/12/19 at 22:00 Gabapentin (Neurontin) 600 mg QID PO Last administered on 07/15/19 09:19; Start 07/12/19 at 22:00 Hydrochlorothiazide (Hydrodiuril) 25 mg DAILY08 PO Last administered on 07/15/19 09:19; Start 07/13/19 at 08:00 Vitamin D (Vitamin D3) 5,000 unit DAILY PO Last administered on 07/15/19 09:20; Start 07/13/19 at 09:00 Insulin Human Lispro (HumaLOG) 25 units TIDWMEALS SQ Last administered on 07/14/19 12:24; Start 07/13/19 at 08:00; Stop 07/14/19 at 13:48; Status DC Insulin Glargine (Lantus Syringe) 42 unit DAILYWBKFT SQ Last administered on 07/14/19 08:55; Start 07/13/19 at 08:00; Stop 07/14/19 at 13:48; Status DC Insulin Glargine (Lantus Syringe) 42 unit QHS SQ Last administered on 07/14/19 21:00; Start 07/13/19 at 21:00 Metformin HCl (Glucophage) 1,000 mg BIDWMEALS PO Last administered on 07/13/19 08:20; Start 07/13/19 at 08:00; Stop 07/13/19 at 11:46; Status DC Oxycodone HCl (Roxicodone) 5 mg TID PO Last administered on 07/14/19 14:30; Start 07/12/19 at 22:00 Oxycodone HCl (Roxicodone) 10 mg PRN DAILY PRN PO BREAKTHRU PAIN Last administered on 07/15/19 09:30; Start 07/12/19 at 22:00 Insulin Glargine (Lantus Syringe) 42 unit 1X ONCE SQ Last administered on 07/12/19 22:44; Start 07/12/19 at 23:00; Stop 07/12/19 at 23:01; Status DC Albuterol Sulfate (Ventolin Neb Soln) 2.5 mg PRN Q4HRS PRN NEB SHORTNESS OF BREATH Last administered on 07/15/19 08:02; Start 07/13/19 at 04:00 Throat Lozenges (Cepacol Sore Throat Lozenge) 1 ever PRN Q2HRS PRN PO SORE THROAT Last administered on 07/14/19 14:30; Start 07/13/19 at 04:00 Ceftriaxone Sodium (Rocephin) 2 gm Q24H IVP Last administered on 07/14/19 17:04; Start 07/13/19 at 18:00 Doxycycline Hyclate (Vibra-Tab) 100 mg BID PO Last administered on 07/15/19 09:19; Start 07/13/19 at 12:30 Guaifenesin/ Codeine Phosphate (Robitussin Ac) 10 ml PRN Q6HRS PRN PO COUGH Last administered on 07/14/19at 20:22; Start 07/13/19 at 12:30 Lactobacillus Rhamnosus (Culturelle) 1 cap BID PO Last administered on 07/15/19at 09:20; Start 07/13/19 at 21:00 Nicotine (Nicoderm Cq 14mg) 1 patch DAILY TD Last administered on 07/15/19at 09:19; Start 07/13/19 at 18:30 Budesonide (Pulmicort) 0.5 mg RTBID NEB Last administered on 07/15/19at 08:02; Start 07/14/19 at 20:00 Acetylcysteine (Mucomyst 20% Resp Treatment) 600 mg BID NEB ; Start 07/14/19 at 21:00 Metformin HCl (Glucophage) 1,000 mg BIDWMEALS PO ; Start 07/14/19 at 17:00; Stop 07/14/19 at 13:17; Status DC Insulin Glargine (Lantus Syringe) 45 unit DAILYWBKFT SQ Last administered on 07/15/19at 09:28; Start 07/15/19 at 08:00 Insulin Human Lispro (HumaLOG) 27 units TIDWMEALS SQ Last administered on 07/15/19at 09:29; Start 07/14/19 at 17:00 Active Scripts Active Albuterol Sulfate Conc Neb Soln (Albuterol Sulfate) 2.5 Mg/0.5 Ml Vial.neb 1 Vial NEB Q4HRS Tessalon Perle (Benzonatate) 100 Mg Capsule 1 Cap PO TID Proair Hfa (Albuterol Sulfate) 8.5 Gm Hfa.aer.ad 1 Puff INH PRN Q6HRS PRN Azithromycin Tablet (Azithromycin) 250 Mg Tablet 1 Pkg PO UD Esdhgw-Sfasszaw-Srzd 50-325-40 (Butalb/Acetaminophen/Caffeine) 1 Each Tablet 1 Each PO Q6HRS PRN Prednisone 20 Mg Tablet 2 Tab PO DAILY Start this prescription tomrrow, 03/16/19 Keflex (Cephalexin) 500 Mg Capsule 2 Cap PO Q12HR Zithromax (Azithromycin) 250 Mg Tablet 1 Pkg PO UD Take 2 tablets on day 1 and then 1 tablet each day for the next 4 days as directed Proair Hfa Inhaler (Albuterol Sulfate) 8.5 Gm Hfa.aer.ad 1 Puff INH PRN Q6HRS PRN Prednisone 20 Mg Tablet 2 Tab PO DAILY Start this prescription 08/07/18 Reported Metformin Hcl 1,000 Mg Tablet 1,000 Mg PO BIDWMEALS Hydrochlorothiazide 25 Mg Tablet 25 Mg PO DAILY08 Oxycodone Hcl 5 Mg Capsule 5 Mg PO TID Oxycodone Hcl 5 Mg Capsule 10 Mg PO DAILY08 PRN Levemir (Insulin Detemir) 100 Unit/1 Ml Vial 42 Unit SQ DAILYWBKFT Vitamin D3 (Cholecalciferol (Vitamin D3)) 5,000 Unit Tablet 1 Tab PO DAILY Gabapentin 300 Mg Capsule 600 Mg PO QID Glipizide 10 Mg Tablet 1 Tab PO BID Levemir (Insulin Detemir) 100 Unit/1 Ml Vial 42 Unit SQ HS Novolog Flexpen (Insulin Aspart) 100 Unit/1 Ml Insuln.pen 25 Unit SQ TIDWMEALS Vitals/I & O Vital Sign - Last 24 Hours 07/14/19 07/14/19 07/14/19 07/14/19 11:27 11:29 14:30 15:32 Temp 98.9 99.0 98.9 99.0 Pulse 96 104 Resp 18 18 B/P (MAP) 137/76 (96) 144/89 (107) Pulse Ox 99 98 98 97 O2 Delivery Room Air Room Air Room Air Room Air 07/14/19 07/14/19 07/14/19 07/14/19 15:36 16:46 19:15 20:00 Temp 98.1 98.1 Pulse 99 Resp 18 B/P (MAP) 128/64 (85) Pulse Ox 97 97 96 O2 Delivery Room Air Room Air Room Air Room Air 07/14/19 07/14/19 07/14/19 07/14/19 20:23 21:14 21:14 21:23 Pulse Ox 97 96 96 94 O2 Delivery Room Air Room Air Room Air Room Air 07/14/19 07/15/19 07/15/19 07/15/19 23:20 03:20 07:00 08:00 Temp 97.9 98.3 98.3 97.9 98.3 98.3 Pulse 101 86 89 Resp 18 18 19 B/P (MAP) 107/68 (81) 121/56 (77) 158/89 (112) Pulse Ox 94 91 96 O2 Delivery Room Air Room Air Room Air Room Air 07/15/19 07/15/19 08:03 09:30 Pulse Ox 96 96 O2 Delivery Room Air Room Air Intake and Output 07/14/19 07/14/19 07/15/19 15:00 23:00 07:00 Intake Total 1080 ml 580 ml 450 ml Balance 1080 ml 580 ml 450 ml SHERIF LUGO MD Jul 15, 2019 10:39
[2019-07-15 10:47] VITALS: BP 132/92
[2019-07-15] MEDS: guaiFENesin/CODEINE 100mg/10mg 5 ML LIQUID PO PRN (12:20)
--- NOTE | 2019-07-15 12:25 | NUR ---
SW following pt for dc planning. Chart reviewed and discussed with nursing team. Pt lives at home with family and is independent with ADL's. No other needs identified at this time. SW will be available as needed.
--- NOTE | 2019-07-15 14:40 | PDOC3 ---
Discharge Summary Date of Admission: Jul 12, 2019 Date of Discharge: Jul 15, 2019 Follow-Up: 3-5 days Admitting Diagnosis comment: discharge dx Assessment/Plan discharge dx 1. No evidence of focal pneumonia. BY CXR , SUSPECT EARLY PNEUMONIA CLINICALLY 2. Patchy bibasilar opacities, likely atelectasis. 3. SEPSIS 4. SEVERE MORBID OBESITY 5. LACTIC ACIDOSIS 6. DIABETES, uncontrolled, stop metformin 7. ACUTE COPD EXAC 8. metabolic syndrome ADMIT BLOOD CULT IV ANTIBIOTICS DOXY, ROCEPHIN DUONEBS DVT PROPHYLAXIS IV FLUID SUPPORT PULM CONSULT reviewed d/c metformin due to lactic acidosis [employer] lantus dosing, needs ada diet at home, weight loss 33 MIN PT EXAM, CHART REVIEW d/c planning , > 50% OF TIME SPENT WITH EXAM, CHART review, pt care coordination Vitals Vitals Vital Signs Date Time Temp Pulse Resp B/P (MAP) Pulse Ox O2 Delivery O2 Flow Rate FiO2 07/15/19 09:30 96 Room Air 07/15/19 07:00 98.3 89 19 158/89 (112) 98.3 Physical Exam General: Alert, Oriented X3, Cooperative, No acute distress Heart: Regular rate, No murmurs Lungs: Wheezing, Crackles less Abdomen: Normal bowel sounds, Soft, No hepatosplenomegaly, obese Extremities: No cyanosis Labs LABS Laboratory Tests Test 07/14/19 11:42 07/14/19 16:31 07/14/19 20:28 07/15/19 07:34 Glucose (Fingerstick) 261 mg/dL (70-99) 236 mg/dL (70-99) 244 mg/dL (70-99) 248 mg/dL (70-99) FINAL DIAGNOSIS Problems Medical Problems: (1) Pneumonia Status: Acute Brief Hospital Course Ms. Irby is a 53 old [sex] who presented with [acute copd exacerbation, hypoxic failure ] CONDITION AT DISCHARGE: Improved Discharge Medications Current Medications Albuterol Sulfate (Ventolin Neb Soln) 2.5 mg 1X ONCE NEB Last administered on 07/12/19at 16:42; Start 07/12/19 at 16:30; Stop 07/12/19 at 16:33; Status DC Ceftriaxone Sodium (Rocephin) 1 gm 1X ONCE IVP Last administered on 07/12/19 19:15; Start 07/12/19 at 18:00; Stop 07/12/19 at 18:03; Status DC Doxycycline Hyclate 100 mg/ Dextrose 100 ml @ 50 mls/hr 1X ONCE IV Last administered on 07/12/19 18:29; Start 07/12/19 at 18:00; Stop 07/12/19 at 19:59; Status DC Sodium Chloride 1,000 ml @ 1,000 mls/hr 1X ONCE IV Last administered on 07/12/19 19:17; Start 07/12/19 at 18:30; Stop 07/12/19 at 19:29; Status DC Fentanyl Citrate (Fentanyl 2ml Vial) 50 mcg 1X ONCE IVP Last administered on 07/12/19 19:15; Start 07/12/19 at 18:30; Stop 07/12/19 at 18:31; Status DC Ondansetron HCl (Zofran) 4 mg 1X ONCE IV Last administered on 07/12/19 19:27; Start 07/12/19 at 19:30; Stop 07/12/19 at 19:31; Status DC Sodium Chloride 1,000 ml @ 1,000 mls/hr 1X ONCE IV Last administered on 07/12/19 20:40; Start 07/12/19 at 19:45; Stop 07/12/19 at 20:44; Status DC Ondansetron HCl (Zofran) 4 mg PRN Q8HRS PRN IV NAUSEA/VOMITING; Start 07/12/19 at 20:00; Stop 07/13/19 at 19:59; Status DC Fentanyl Citrate (Fentanyl 2ml Vial) 50 mcg PRN Q1HR PRN IV PAIN Last administered on 07/12/19 20:46; Start 07/12/19 at 20:00; Stop 07/13/19 at 19:59; Status DC Acetaminophen (Tylenol) 650 mg PRN Q4HRS PRN PO FEVER; Start 07/12/19 at 20:00; Stop 07/13/19 at 19:59; Status DC Albuterol/ Ipratropium (Duoneb) 3 ml RTQID NEB Last administered on 07/13/19at 19:33; Start 07/12/19 at 20:00; Stop 07/13/19 at 19:59; Status DC Benzonatate (Tessalon Perle) 100 mg TID PO Last administered on 07/15/19 13:40; Start 07/12/19 at 22:00 Gabapentin (Neurontin) 600 mg QID PO Last administered on 07/15/19 13:37; Start 07/12/19 at 22:00 Hydrochlorothiazide (Hydrodiuril) 25 mg DAILY08 PO Last administered on 07/15/19 09:19; Start 07/13/19 at 08:00 Vitamin D (Vitamin D3) 5,000 unit DAILY PO Last administered on 07/15/19 09:20; Start 07/13/19 at 09:00 Insulin Human Lispro (HumaLOG) 25 units TIDWMEALS SQ Last administered on 12:24; Start 07/13/19 at 08:00; Stop 07/14/19 at 13:48; Status DC Insulin Glargine (Lantus Syringe) 42 unit DAILYWBKFT SQ Last administered on 07/14/19 08:55; Start 07/13/19 at 08:00; Stop 07/14/19 at 13:48; Status DC Insulin Glargine (Lantus Syringe) 42 unit QHS SQ Last administered on 07/14/19 21:00; Start 07/13/19 at 21:00 Metformin HCl (Glucophage) 1,000 mg BIDWMEALS PO Last administered on 07/13/19 08:20; Start 07/13/19 at 08:00; Stop 07/13/19 at 11:46; Status DC Oxycodone HCl (Roxicodone) 5 mg TID PO Last administered on 07/15/19 13:37; Start 07/12/19 at 22:00 Oxycodone HCl (Roxicodone) 10 mg PRN DAILY PRN PO BREAKTHRU PAIN Last administered on 07/15/19 09:30; Start 07/12/19 at 22:00 Insulin Glargine (Lantus Syringe) 42 unit 1X ONCE SQ Last administered on 07/12/19at 22:44; Start 07/12/19 at 23:00; Stop 07/12/19 at 23:01; Status DC Albuterol Sulfate (Ventolin Neb Soln) 2.5 mg PRN Q4HRS PRN NEB SHORTNESS OF BREATH Last administered on 07/15/19 11:35; Start 07/13/19 at 04:00 Throat Lozenges (Cepacol Sore Throat Lozenge) 1 ever PRN Q2HRS PRN PO SORE THROAT Last administered on 07/14/19 14:30; Start 07/13/19 at 04:00 Ceftriaxone Sodium (Rocephin) 2 gm Q24H IVP Last administered on 07/14/19 17:04; Start 07/13/19 at 18:00 Doxycycline Hyclate (Vibra-Tab) 100 mg BID PO Last administered on 07/15/19 09:19; Start 07/13/19 at 12:30 Guaifenesin/ Codeine Phosphate (Robitussin Ac) 10 ml PRN Q6HRS PRN PO COUGH Last administered on 07/15/19 12:20; Start 07/13/19 at 12:30 Lactobacillus Rhamnosus (Culturelle) 1 cap BID PO Last administered on 07/15/19 09:20; Start 07/13/19 at 21:00 Nicotine (Nicoderm Cq 14mg) 1 patch DAILY TD Last administered on 07/15/19 09:19; Start 07/13/19 at 18:30; Stop 07/15/19 at 12:15; Status DC Budesonide (Pulmicort) 0.5 mg RTBID NEB Last administered on 07/15/19at 08:02; Start 07/14/19 at 20:00 Acetylcysteine (Mucomyst 20% Resp Treatment) 600 mg BID NEB ; Start 07/14/19 at 21:00; Stop 07/15/19 at 12:15; Status DC Metformin HCl (Glucophage) 1,000 mg BIDWMEALS PO ; Start 07/14/19 at 17:00; Stop 07/14/19 at 13:17; Status DC Insulin Glargine (Lantus Syringe) 45 unit DAILYWBKFT SQ Last administered on 07/15/19at 09:28; Start 07/15/19 at 08:00 Insulin Human Lispro (HumaLOG) 27 units TIDWMEALS SQ Last administered on 11/11/19at 12:29; Start 07/14/19 at 17:00 Active Scripts Active Albuterol Sulfate Conc Neb Soln (Albuterol Sulfate) 2.5 Mg/0.5 Ml Vial.neb 1 Vial NEB Q4HRS Tessalon Perle (Benzonatate) 100 Mg Capsule 1 Cap PO TID Proair Hfa (Albuterol Sulfate) 8.5 Gm Hfa.aer.ad 1 Puff INH PRN Q6HRS PRN Azithromycin Tablet (Azithromycin) 250 Mg Tablet 1 Pkg PO UD Fafmvy-Vmqtrbfa-Sumt 50-325-40 (Butalb/Acetaminophen/Caffeine) 1 Each Tablet 1 Each PO Q6HRS PRN Prednisone 20 Mg Tablet 2 Tab PO DAILY Start this prescription tommiguel, 03/16/19 Keflex (Cephalexin) 500 Mg Capsule 2 Cap PO Q12HR Zithromax (Azithromycin) 250 Mg Tablet 1 Pkg PO UD Take 2 tablets on day 1 and then 1 tablet each day for the next 4 days as directed Proair Hfa Inhaler (Albuterol Sulfate) 8.5 Gm Hfa.aer.ad 1 Puff INH PRN Q6HRS PRN Prednisone 20 Mg Tablet 2 Tab PO DAILY Start this prescription 08/07/18 Reported Metformin Hcl 1,000 Mg Tablet 1,000 Mg PO BIDWMEALS Hydrochlorothiazide 25 Mg Tablet 25 Mg PO DAILY08 Oxycodone Hcl 5 Mg Capsule 5 Mg PO TID Oxycodone Hcl 5 Mg Capsule 10 Mg PO DAILY08 PRN Levemir (Insulin Detemir) 100 Unit/1 Ml Vial 42 Unit SQ DAILYWBKFT Vitamin D3 (Cholecalciferol (Vitamin D3)) 5,000 Unit Tablet 1 Tab PO DAILY Gabapentin 300 Mg Capsule 600 Mg PO QID Glipizide 10 Mg Tablet 1 Tab PO BID Levemir (Insulin Detemir) 100 Unit/1 Ml Vial 42 Unit SQ HS Novolog Flexpen (Insulin Aspart) 100 Unit/1 Ml Insuln.pen 25 Unit SQ TIDWMEALS Vital Signs Vital Signs Date Time Temp Pulse Resp B/P (MAP) Pulse Ox O2 Delivery O2 Flow Rate FiO2 07/15/19 13:37 98 Room Air 07/15/19 10:47 98.0 97 19 132/92 (105) 98.0 Labs Laboratory Tests Test 07/13/19 16:57 07/13/19 21:23 07/14/19 07:27 07/14/19 08:20 Glucose (Fingerstick) 156 mg/dL (70-99) 281 mg/dL (70-99) 270 mg/dL (70-99) White Blood Count 10.0 x10^3/uL (4.0-11.0) Red Blood Count 4.20 x10^6/uL (3.50-5.40) Hemoglobin 12.7 g/dL (12.0-15.5) Hematocrit 38.0 % (36.0-47.0) Mean Corpuscular Volume 91 fL (79-100) Mean Corpuscular Hemoglobin 30 pg (25-35) Mean Corpuscular Hemoglobin Concent 34 g/dL (31-37) Red Cell Distribution Width 14.7 % (11.5-14.5) Platelet Count 386 x10^3/uL (140-400) Neutrophils (%) (Auto) 57 % (31-73) Lymphocytes (%) (Auto) 32 % (24-48) Monocytes (%) (Auto) 6 % (0-9) Eosinophils (%) (Auto) 5 % (0-3) Basophils (%) (Auto) 1 % (0-3) Neutrophils # (Auto) 5.7 x10^3/uL (1.8-7.7) Lymphocytes # (Auto) 3.2 x10^3/uL (1.0-4.8) Monocytes # (Auto) 0.6 x10^3/uL (0.0-1.1) Eosinophils # (Auto) 0.4 x10^3/uL (0.0-0.7) Basophils # (Auto) 0.1 x10^3/uL (0.0-0.2) Sodium Level 138 mmol/L (136-145) Potassium Level 4.1 mmol/L (3.5-5.1) Chloride Level 99 mmol/L (98-107) Carbon Dioxide Level 28 mmol/L (21-32) Anion Gap 11 (6-14) Blood Urea Nitrogen 24 mg/dL (7-20) Creatinine 1.1 mg/dL (0.6-1.0) Estimated GFR (Cockcroft-Gault) 52.0 BUN/Creatinine Ratio 22 (6-20) Glucose Level 302 mg/dL (70-99) Calcium Level 9.4 mg/dL (8.5-10.1) Total Bilirubin 0.3 mg/dL (0.2-1.0) Aspartate Amino Transf (AST/SGOT) 23 U/L (15-37) Alanine Aminotransferase (ALT/SGPT) 33 U/L (14-59) Alkaline Phosphatase 119 U/L (46-116) Total Protein 7.3 g/dL (6.4-8.2) Albumin 3.4 g/dL (3.4-5.0) Albumin/Globulin Ratio 0.9 (1.0-1.7) Test 07/14/19 11:42 07/14/19 16:31 07/14/19 20:28 07/15/19 07:34 Glucose (Fingerstick) 261 mg/dL (70-99) 236 mg/dL (70-99) 244 mg/dL (70-99) 248 mg/dL (70-99) Test 07/15/19 11:23 Glucose (Fingerstick) 225 mg/dL (70-99) Laboratory Tests Test 07/14/19 16:31 07/14/19 20:28 07/15/19 07:34 07/15/19 11:23 Glucose (Fingerstick) 236 mg/dL (70-99) 244 mg/dL (70-99) 248 mg/dL (70-99) 225 mg/dL (70-99) Allergies Allergies Coded Allergies Type Severity Reaction Last Updated Verified Sulfa (Sulfonamide Antibiotics) Allergy Intermediate Rash 08/23/18 Yes Disposition/Orders: D/C to Home SHERIF LUGO MD Jul 15, 2019 14:40
[2019-07-15] MEDS ORDERED: INSU100V8 SQ (14:46)
[2019-07-15] MEDS ORDERED: LACT1CAP19 PO (14:46)
[2019-07-15] MEDS ORDERED: INSU100I11 SQ (14:46)
[2019-07-15] MEDS ORDERED: BUDE0.5A NEB (14:46)
[2019-07-15] MEDS ORDERED: DOXY100T PO (14:46)
--- NOTE | 2019-07-15 14:46 | DISCH ---
DISCHARGE INSTRUCTIONS Condition on Discharge Condition on Discharge: Stable Activity After Discharge Activity Instructions for Disc: Resume previous activity Lifting Instructions after Dis: No heavy lifting, No pulling or pushing Exercise Instruction after Dis: Walk 10 min, 3 x per day Driving Instructions after Dis: Do not drive today Weight Bearing Status after Di: As tolerated Diet after Discharge Diet after Discharge: Diabetic No Calorie Level Checks after Discharge Checks after discharge: Check blood press - daily, Check blood sugar, ac/hs Contacting the DR. after DC Call your doctor for: If your condition worsens Warfarin Follow-Up Warfarin Follow UP: no smoking SHERIF LUGO MD Jul 15, 2019 14:46
[2019-07-15 15:00] VITALS: BP 142/84
--- NOTE | 2019-07-15 16:36 | NUR ---
Discharge Note: JOSE WREN Discharge instructions and discharge home medications reviewed with Patient and a copy given. All questions have been answered and understanding verbalized. The following instructions and handouts were given: follow up instructions Discontinued lines and drains: 20 gauge right hand, tip intact. patient tolerated well. Patient discharged to home with self care via friend.
== END 2019-07-15 16:15 | disposition home or self-care (01) | DRG 871 ==
LOC: ER 16:00 → 6 SOUTH 19:40
PROVIDERS: ADMIT Internal Medicine; ATTEND Internal Medicine
DX: A41.9 Sepsis, unspecified organism (principal); J18.9 Pneumonia, unspecified organism; J44.1 Chronic obstructive pulmonary disease with (acute) exacerbation; Z68.42 Body mass index [BMI] 45.0-49.9, adult; J44.0 Chronic obstructive pulmonary disease with (acute) lower respiratory infection; J98.11 Atelectasis; E66.01 Morbid (severe) obesity due to excess calories; E11.65 Type 2 diabetes mellitus with hyperglycemia; E11.42 Type 2 diabetes mellitus with diabetic polyneuropathy; E88.81 Metabolic syndrome and other insulin resistance; G62.9 Polyneuropathy, unspecified; F17.210 Nicotine dependence, cigarettes, uncomplicated; I10 Essential (primary) hypertension; R09.02 Hypoxemia; Z82.49 Family history of ischemic heart disease and other diseases of the circulatory system; Z87.01 Personal history of pneumonia (recurrent); Z90.49 Acquired absence of other specified parts of digestive tract; Z79.4 Long term (current) use of insulin
CPT/HCPCS: 36415; 71046; 80053; 81001; 82962; 83605; 84145; 84484; 85025; 87040; 87804; 93005; 94640; 96365; 96366; 96375; 96376; J0696; J1815; J2405; J3010; J3490; J7030; J7613; J7620; J7626; 99285-25; G0378

== ENCOUNTER 2020-12-09 17:30 | Emergency (ER) | payer OTHER ==
[~2020-12-09] VITALS: Ht 157.5 cm; Wt 118.0 kg
[~2020-12-09 17:30] MED LIST changes: +BUDE0.5A NEB; +DOXY100T PO; +HYDR25TA10 PO; +INSU100I11 SQ; +INSU100V8 SQ; +LACT1CAP19 PO; -LISI-334 PO; +LISI20TA18 PO
--- NOTE | 2020-12-09 18:22 | RAD ---
Exam: Right knee 4 views INDICATION: Pain TECHNIQUE: Frontal, lateral, oblique and sunrise views of the right knee Comparisons: None FINDINGS: Bone mineralization is normal. No acute or healed fractures. Soft tissues are unremarkable. Joint spa martin are well-maintained. IMPRESSION: No acute osseous abnormality. Electronically signed by: Mary Waite MD (12/09/2020 6:20 PM) MARY
[2020-12-09] MEDS ORDERED: NAPROXEN 500 MG TABLET PO STA (18:33)
[2020-12-09 18:38] VITALS: BP 150/71
[2020-12-09] MEDS ORDERED: HYDROcodone/APAP 5/325MG 1 TAB TABLET PO ONE (18:45)
--- NOTE | 2020-12-09 18:58 | PHYS DOC ---
Past Medical History Past Medical History: Diabetes-Type II, Fibromyalgia, Hypertension Additional Past Medical Histor: Neuropathy Past Surgical History: Cholecystectomy, Smoking Status: Former Smoker Alcohol Use: None Drug Use: None General Adult EDM: Chief Complaint: KNEE INJURY HPI: HPI: Patient is a 55 year old female with history of fibromyalgia, hypertension, diabetes type 2, who presents today complaining of moderate pain to the right knee that began 1 month ago. Patient states a month ago she twisted her knee. She states she was able to use it with no difficulties. She states a week ago she retwisted the same knee. Patient states now she has moderate pain to the ED was on weightbearing. She is overweight. Review of Systems: Review of Systems: Constitutional: Denies fever or chills. [] Musculoskeletal: Reports right knee pain Integument: Denies rash. [] Neurologic: Denies headache, focal weakness or sensory changes. [] Psychiatric: Denies depression or anxiety. [] Heart Score: C/O Chest Pain: N/A Risk Factors: Risk Factors: DM, Current or recent (<one month) smoker, HTN, HLP, family history of CAD, obesity. Risk Scores: Score 0 - 3: 2.5% MACE over next 6 weeks - Discharge Home Score 4 - 6: 20.3% MACE over next 6 weeks - Admit for Clinical Observation Score 7 - 10: 72.7% MACE over next 6 weeks - Early Invasive Strategies Current Medications: Current Medications Medications (Trade) Dose Ordered Sig/Mahteus Start Time Stop Time Status Last Admin Dose Admin Acetaminophen/ Hydrocodone Bitart (Lortab 5/325) 2 tab 1X ONCE 12/09/20 18:45 12/09/20 18:46 DC Naproxen (Naprosyn) 500 mg 1X STAT 12/09/20 18:33 12/09/20 18:38 DC Allergies: Allergies: Allergies Coded Allergies Type Severity Reaction Last Updated Verified Sulfa (Sulfonamide Antibiotics) Allergy Intermediate Rash 08/23/18 Yes Physical Exam: PE: Constitutional: Well developed, well nourished, no acute distress, non-toxic appearance. [] Skin: Warm, dry, no erythema, no rash. [] Back: No tenderness, no CVA tenderness. [] Extremities: Obese patient with turnic obesity, tenderness on palpation of the medial right knee. Full active as well as passive range of motion today right knee. +2 right pedal pulse. Cap refill less than 2 seconds to right toes. Neurologic: Alert and oriented X 3, normal motor function, normal sensory function, no focal deficits noted. [] Psychologic: Affect normal, judgement normal, mood normal. [] Current Patient Data: Vital Signs: Vital Signs Date Time Temp Pulse Resp B/P (MAP) Pulse Ox O2 Delivery O2 Flow Rate FiO2 12/09/20 18:38 97.8 99 16 150/71 (97) 94 Room Air 97.8 EKG: EKG: [] Radiology/Procedures: Radiology/Procedures: []PROCEDURE: KNEE RIGHT 4V Exam: Right knee 4 views INDICATION: Pain TECHNIQUE: Frontal, lateral, oblique and sunrise views of the right knee Comparisons: None FINDINGS: Bone mineralization is normal. No acute or healed fractures. Soft tissues are unremarkable. Joint spaces are well-maintained. IMPRESSION: No acute osseous abnormality. Electronically signed by: Mary Alexander MD (12/09/2020 6:20 PM) [facility] DICTATED and SIGNED BY: MARY ALEXANDER MD DATE: 12/09/20 [id number] 0 Course & Med Decision Making: Course & Med Decision Making Pertinent Labs and Imaging studies reviewed. (See chart for details) This is a 55-year-old female patient presenting to the ED today with right knee pain that began a month ago after she twisted her knee, patient states she also read twisted the knee a week ago. The right knee x-rays interpreted by radiol ogist are negative for any acute findings. Patient already has a small [id number] splint on the right knee applied by herself. Neurovascular exam to the right lower extremity is normal. Ice elevation encouraged, crutches provided. Follow-up with orthopedic doctor Fadi Disclaimer: Fadi Disclaimer: This electronic medical record was generated, in whole or in part, using a voice recognition dictation system. Departure Departure Impression: Primary Impression: Sprain of right knee Qualified Codes: S83.91XA - Sprain of unspecified site of right knee, initial encounter Disposition: 01 DC HOME SELF CARE/HOMELESS Condition: STABLE Referrals: UNKNOWN PCP NAME (PCP) KIERRA GODFREY MD follow up in one week Patient Instructions: Knee Sprain, [id number] Additional Instructions: You have right knee pain, your right knee x-rays are negative for any acute findings. Try to ice and elevate the extremity. Please follow-up with your orthopedic doctor or the provided orthopedic doctor in the next 1 week. Scripts Meloxicam (MELOXICAM) 7.5 Mg Tablet 1 TAB PO DAILY, #20 TAB 0 Refills Prov: REMY BUCKLEY APRN 12/09/20 Hydrocodone Bit/Acetaminophen (HYDROCODONE-APAP 5-325 ) 1 Tab Tablet 1 TAB PO PRN Q6HRS PRN for PAIN, #10 TAB 0 Refills Prov: REMY BUCKLEY APRN 12/09/20 REMY BUCKLEY APRN Dec 09, 2020 18:58
[2020-12-09] MEDS ORDERED: MELO7.5T29 PO (19:03)
[2020-12-09] MEDS ORDERED: HYDR-2761 PO (19:03)
== END 2020-12-09 19:07 | disposition home or self-care (01) ==
LOC: ER 17:30
DX: S83.91XA Sprain of unspecified site of right knee, initial encounter (principal); E11.40 Type 2 diabetes mellitus with diabetic neuropathy, unspecified; I10 Essential (primary) hypertension; Z87.891 Personal history of nicotine dependence; Z90.49 Acquired absence of other specified parts of digestive tract; Z88.2 Allergy status to sulfonamides; X50.9XXA Other and unspecified overexertion or strenuous movements or postures, initial encounter; Y93.89 Activity, other specified; Y92.89 Other specified places as the place of occurrence of the external cause; Y99.8 Other external cause status
CPT/HCPCS: 73564; 99283